=== PATIENT | female | born 1980 | race Caucasian/White ===

== ENCOUNTER 2018-03-09 21:25 | Inpatient (IN) | payer MEDICAID ==
[~2018-03-09] VITALS: Ht 152.4 cm; Wt 78.0 kg
[2018-03-09 21:33] VITALS: BP 181/127
--- NOTE | 2018-03-09 21:33 | NUR ---
PT TAKEN TO BED 10
--- NOTE | 2018-03-09 21:35 | NUR ---
37YO F PATIENT PRESENTS TO ED WITH WITH CP X1DAY AND SWELLING TO BILAT LEGS . PT STATES PAIN HAS BEEN ON AND OFF FOR X1WEEK WITH NO AGRIVATING FACTORS, WITH NAUEA, AND SOB . DENIES V/D TODAY W/ VOMITING EPISODES EARILIER IN THE WEEK; SKIN IS PINK/WARM/DRY WITH MOTTLING OF BILAT LEGS; AAOX4 WITH EVEN AND STEADY GAIT; LUNGS CLEAR BL; HR EVEN AND REGULAR; PT DENIES ANY FEVER OR COUGH AT THIS TIME; PATIENT STATES PAIN OF 5/10 AT THIS TIME; VSS; PATIENT POSITIONED FOR COMFORT; HOB ELEVATED; BEDRAILS UP X2; BED DOWN. ER MD MADE AWARE OF PT STATUS.
--- NOTE | 2018-03-09 21:38 | NUR ---
Dr. Chase evaluating patient.
--- NOTE | 2018-03-09 22:05 | NUR ---
PT REAST IN IN NO APPERENT DISTRESS TALKING WITH FRIEND AT BEDSIDE
[2018-03-09 22:16] LABS: BASOPHILS # (AUTO) 0.1 K/uL (0.00-0.22); BASOPHILS % (AUTO) 0.7 % (0.0-2.0); EOSINOPHILS % (AUTO) 0.7 % (0.0-4.0); HEMATOCRIT 51.9 % (36-48); HEMOGLOBIN 17.1 g/dL (12.0-16.0); LYMPHOCYTES # (AUTO) 2.9 K/uL (2.5-16.5); LYMPHOCYTES % (AUTO) 37.7 % (20.5-51.1); MEAN CORPUSCULAR HEMOGLOBIN 32 pg (27-31); MEAN CORPUSCULAR HGB CONC 33 g/dL (33-37); MEAN CORPUSCULAR VOLUME 95.8 fL (80-94); MONOCYTES # (AUTO) 0.5 K/uL (0.8-1.0); MONOCYTES % (AUTO) 7.2 % (1.7-9.3); NEUTROPHILS # (AUTO) 4.1 K/uL (1.8-7.7); NEUTROPHILS % (AUTO) 53.7 % (42.2-75.2); PLATELET COUNT (AUTO) 127 K/uL (140-450); RED BLOOD CELL COUNT(AUTO) 5.42 MIL/uL (4.20-5.40); RED CELL DISTRIBUTION WIDTH 14.1 % (11.6-13.7); WHITE BLOOD COUNT (AUTO) 7.6 K/uL (4.8-10.8)
[2018-03-09 22:33] LABS: ANION GAP 11.9 (8-16); CARBON DIOXIDE 28.3 mmol/L (21-32); CREATININE 1.2 mg/dL (0.6-1.3); POTASSIUM 4.2 mmol/L (3.5-5.1)
[2018-03-09 22:39] LABS: ALBUMIN 2.6 g/dL (3.4-5.0); TOTAL BILIRUBIN 0.5 mg/dL (0.0-1.0)
[2018-03-09 22:41] LABS: PROTHROMBIN TIME 13.1 secs (10.8-13.4)
[2018-03-09] MEDS ORDERED: ASPIRIN 81 MG TAB.CHEW PO ONE (22:50)
[2018-03-09] MEDS ORDERED: NACL 0.9% 1,000 ML IV ONE (22:50)
[2018-03-09] MEDS ORDERED: ONDANSETRON 4 MG/2 ML VIAL IVP PRN (23:25)
[2018-03-09] MEDS ORDERED: ACETAMINOPHEN 325 MG TAB PO PRN (23:25)
[2018-03-09] MEDS ORDERED: HYDROcodone/APAP 7.5/325 MG 1 TAB PO PRN (23:25)
[2018-03-09 23:43] LABS: BARBITURATE, URINE NEG. ng/ml (NEG <=200); BENZODIAZEPINE, URINE NEG. ng/mL (NEG <=200); CANNABINOID, URINE POS. ng/mL (NEG <=50); COCAINE, URINE NEG. ng/mL (NEG <=300); OPIATE, URINE NEG. ng/mL (NEG <=2000); PHENCYCLIDINE SCREEN,URINE NEG. ng/mL (NEG <=25)
--- NOTE | 2018-03-09 23:48 | NUR ---
Patient will be admitted to care of DR BURROWS . Admited to TELE. Will go to room 123B. Belongings list completed. Report to NAY BIRD.
[2018-03-09 23:52] LABS: FREE T4 (FREE THYROXINE) 0.93 ng/dL (0.76-1.46); MAGNESIUM 1.4 mg/dL (1.8-2.4); PHOSPHORUS 5.5 mg/dL (2.5-4.9); THYROID STIMULATING HORMONE 6.86 uIU/mL (0.34-3.74)
[2018-03-10] VITALS: BP 164/134
--- NOTE | 2018-03-10 | NUR ---
RECEIVED REPORT FROM ER NURSE ROOSEVELT. PT IN STABLE CONDITION. NO S/S OF DISTRESS NOTED. PT CAME TO ER WITH C/C: CHEST PAIN BUT DOES NOT CURRENTLY HAVE CHEST PAIN. PT IS ON RA. IV TO R AC 20G PATENT AND INTACT. SKIN IS WARM AND DRY TO TOUCH, COLOR WNL. RR EVEN/UNLABORED. INITIAL ASSESSMENT COMPLETED. PLAN OF CARE DISCUSSED WITH PT, VERBALIZED UNDERSTANDING. ALL SAFETY PRECAUTIONS MET, CALL LIGHT WITHIN REACH, WILL CONTINUE TO MONITOR
--- NOTE | 2018-03-10 00:10 | NUR ---
DR. TANNER IN TO SEE PT AND DISCUSS PLAN OF CARE
[2018-03-10 00:13] LABS: APPEARANCE,URINE CLEAR (CLEAR); BILIRUBIN,URINE NEGATIVE (NEGATIVE); BLOOD, URINE 2+ (NEGATIVE); COLOR,URINE YELLOW (YELLOW); LEUKOCYTE ESTERASE ,URINE NEGATIVE (NEGATIVE); NITRITE, URINE NEGATIVE (NEGATIVE); UGLUCOSE NEGATIVE (NEGATIVE)
[2018-03-10] MEDS ORDERED: FUROSEMIDE 20 MG/2 ML VIAL IVP SCH ×2 (00:30→08:30)
--- NOTE | 2018-03-10 00:47 | NUR ---
DR. TANNER ORDERED CT W/ CONTRAST STAT FOR PT. CONSENT OBTAINED. SPOKE WITH KRISTIN IN RAD AND STATED PT IS READY TO GO
[2018-03-10] MEDS ORDERED: MAG SULF 2000 MG/WATER PREMIX 50 ML IV SCH (01:15)
--- NOTE | 2018-03-10 01:30 | NUR ---
CARMEN IN RAD CALLED TO REMIND HER OF STAT CT. STATED SHE DID NOT KNOW PT WAS READY, AND SHE WILL COME
[2018-03-10 01:45] LABS: RBC,URINE 3-10 (FEW) /HPF (0-5); URINE AMORPHOUS URATE 2+ /HPF (None Seen); WBC,URINE 6-15 (FEW) /HPF (0-5)
--- NOTE | 2018-03-10 02:30 | NUR ---
PT TAKEN TO CT IN STABLE CONDITION. NO S/S OF DISTRESS NOTED
--- NOTE | 2018-03-10 03:00 | NUR ---
PT BACK FROM CT IN STABLE CONDITION, PT PROVIDED WITH SANDWICH AND PUT ON 2L O2 VIA NC PER DR. NG'S ORDERS. PT FEELS SOB AND O2 SAT 90%
--- NOTE | 2018-03-10 04:30 | NUR ---
DR. NG AWARE OF PTS B/P 147/110 PULSE 77. STATED IT IS OKAY BECAUSE IT IS COMING DOWN, NO NEW ORDERS
[2018-03-10 06:06] VITALS: BP 147/110
[2018-03-10 06:17] LABS: EOSINOPHILS # (AUTO) 0.1 K/uL (0-0.4); HEMATOCRIT 52.9 % (36-48); LYMPHOCYTES # (AUTO) 2.5 K/uL (2.5-16.5); MEAN CORPUSCULAR VOLUME 94.8 fL (80-94); MONOCYTES # (AUTO) 0.6 K/uL (0.8-1.0)
[2018-03-10 06:33] LABS: BASOPHILS % (AUTO) 0.4 % (0.0-2.0); EOSINOPHILS % (AUTO) 0.9 % (0.0-4.0); HEMOGLOBIN 17.7 g/dL (12.0-16.0); LYMPHOCYTES % (AUTO) 26.7 % (20.5-51.1); MEAN CORPUSCULAR HEMOGLOBIN 32 pg (27-31); MEAN CORPUSCULAR HGB CONC 33 g/dL (33-37); MONOCYTES % (AUTO) 6.9 % (1.7-9.3); NEUTROPHILS % (AUTO) 65.1 % (42.2-75.2); PLATELET COUNT (AUTO) 127 K/uL (140-450); RED BLOOD CELL COUNT(AUTO) 5.59 MIL/uL (4.20-5.40); WHITE BLOOD COUNT (AUTO) 9.2 K/uL (4.8-10.8)
[2018-03-10 06:39] LABS: ANION GAP 13.9 (8-16); CARBON DIOXIDE 23.8 mmol/L (21-32); POTASSIUM 3.7 mmol/L (3.5-5.1)
[2018-03-10 06:44] LABS: MAGNESIUM 1.9 mg/dL (1.8-2.4); PHOSPHORUS 4.8 mg/dL (2.5-4.9)
--- NOTE | 2018-03-10 07:20 | NUR ---
ASSUMED CONTINUITY OF CARE. NO SIGNS AND SYMPTOMS OF ACUTE DISTRESS NOTED. INITIAL ASSESSMENT DONE. KEEP COMFORTABLE ON BED. EXPLAINED DIAGNOSIS, PLAN OF CARE, PAIN MANAGEMENT TEACHING, USE OF CALL LIGHT/BED/TV/BATHROOM. VERBALIZED UNDERSTANDING. CALL LIGHT WITHIN REACH.
--- NOTE | 2018-03-10 07:30 | NUR ---
REPORT GIVEN TO DAY NURSE, PT IN STABLE CONDITION. NO S/S OF DISTRESS NOTED.
[2018-03-10 08:00] VITALS: BP 128/106
--- NOTE | 2018-03-10 08:00 | NUR ---
Patient's Plan of Care was discussed and reviewed with DELICATESSEN SLICER: MAGUI WARE
[2018-03-10] MEDS: ATORVASTATIN 20 MG TAB PO SCH (08:47)
[2018-03-10] MEDS: DOCUSATE SODIUM 100 MG GELCAP PO SCH ×2 (08:47→20:20)
[2018-03-10] MEDS: METOPROLOL 25 MG TAB PO SCH ×2 (08:48→20:20)
[2018-03-10] MEDS: ECOTRIN 81 MG TABEC PO SCH (08:48)
[2018-03-10] MEDS ORDERED: METOPROLOL 25 MG TAB PO SCH ×2 (09:00)
[2018-03-10] MEDS ORDERED: LISINOPRIL 5 MG TAB PO SCH ×2 (09:00)
--- NOTE | 2018-03-10 09:08 | NUR ---
PATIENT HAS BEEN SCREENED AND CATEGORIZED HIGH NUTRITION RISK. PATIENT WILL BE SEEN WITHIN 1-2 DAYS OF ADMISSION. 03/10/18 - 03/11/[address]
[2018-03-10] MEDS ORDERED: LISINOPRIL 20 MG TAB PO SCH (11:05)
[2018-03-10] MEDS ORDERED: CARVEDILOL 3.125 MG TAB PO SCH (11:30)
--- NOTE | 2018-03-10 11:30 | NUR ---
FAXED INITIAL REVIEW TO [facility] [phone] PHONE YONG [phone]
[2018-03-10 12:00] VITALS: BP 139/102
--- NOTE | 2018-03-10 13:25 | NUR ---
PHYSICAL THERAPIST CAME FOR PT. EVAL AND TREATMENT.
--- NOTE | 2018-03-10 14:55 | NUR ---
03/10/18 RD INITIAL ASSESSMENT COMPLETED PLEASE REFER TO NUTRITION ASSESSMENT UNDER CARE ACTIVITY FOR ESTIMATED NUTRITIONAL NEEDS. 1. CONTINUE CARDIAC DIET TOLERATED - PT MEETING 100% OF ESTIMATED KCAL AND PROTEIN NEEDS 2. PROVIDED PT WITH LOW FAT DIET EDUCATION 3. RD TO FOLLOW-UP 5-7 DAYS, LOW RISK CIERA LOPEZ, KIRBY
--- NOTE | 2018-03-10 15:45 | NUR ---
P.T. NOTES P.T. DIETER COMPLETED; NURSING TO AMBULATE PATIENT AD HUSAM, O2 SAT ROOM AIR=92% (W/ GAIT), 96% (REST). Addendum: 03/10/18 at 1546 by Bella Vo PT Amended: Links added.
--- NOTE | 2018-03-10 15:55 | NUR ---
Hoopla CAME FOR PT. US ABD. INFORMED DR. VELASCO AND CHARGE NURSE NORA AMBRIZ THAT PT. US ABD IS JUST ABOUT TO START AT THIS TIME.
[2018-03-10 16:00] VITALS: BP 131/96
--- NOTE | 2018-03-10 19:18 | NUR ---
REPORT GIVEN TO CASTILLO AMBRIZ. IN STABLE CONDITION.
--- NOTE | 2018-03-10 19:19 | NUR ---
RECEIVED REPORT FROM MAGUI ADAMES LVN PT IN STABLE CONDITION. NO S/S OF DISTRESS NOTED. PT IS ON RA. IV TO R AC 20G PATENT AND INTACT. SKIN IS WARM AND DRY TO TOUCH, COLOR WNL. RR EVEN/UNLABORED. INITIAL ASSESSMENT COMPLETED. PLAN OF CARE DISCUSSED WITH PT, VERBALIZED UNDERSTANDING. ALL SAFETY PRECAUTIONS MET, CALL LIGHT WITHIN REACH, WILL CONTINUE TO MONITOR
[2018-03-10 20:00] VITALS: BP 126/94
[2018-03-10] MEDS: FUROSEMIDE 100 MG/10 ML VIAL IVP SCH (20:20)
--- NOTE | 2018-03-10 21:30 | NUR ---
PT RESTING COMFORTABLY IN BED. NO S/S OF DISTRESS NOTED. VSS, WILL CONTINUE TO MONITOR
[2018-03-11] VITALS: BP 128/93
--- NOTE | 2018-03-11 | NUR ---
PT RESTING COMFORTABLY IN BED. NO S/S OF DISTRESS NOTED. VSS, WILL CONTINUE TO MONITOR
--- NOTE | 2018-03-11 03:30 | NUR ---
PT RESTING COMFORTABLY IN BED. NO S/S OF DISTRESS NOTED. VSS, WILL CONTINUE TO MONITOR
[2018-03-11 04:00] VITALS: BP 132/96
[2018-03-11 06:30] LABS: BASOPHILS # (AUTO) 0.1 K/uL (0.00-0.22); BASOPHILS % (AUTO) 0.6 % (0.0-2.0); EOSINOPHILS # (AUTO) 0.1 K/uL (0-0.4); EOSINOPHILS % (AUTO) 1.1 % (0.0-4.0); HEMATOCRIT 55.4 % (36-48); HEMOGLOBIN 18.4 g/dL (12.0-16.0); LYMPHOCYTES # (AUTO) 3.1 K/uL (2.5-16.5); LYMPHOCYTES % (AUTO) 35.6 % (20.5-51.1); MEAN CORPUSCULAR HEMOGLOBIN 32 pg (27-31); MEAN CORPUSCULAR HGB CONC 33 g/dL (33-37); MEAN CORPUSCULAR VOLUME 96.4 fL (80-94); MONOCYTES # (AUTO) 0.7 K/uL (0.8-1.0); MONOCYTES % (AUTO) 8.3 % (1.7-9.3); NEUTROPHILS # (AUTO) 4.8 K/uL (1.8-7.7); NEUTROPHILS % (AUTO) 54.4 % (42.2-75.2); PLATELET COUNT (AUTO) 123 K/uL (140-450); RED BLOOD CELL COUNT(AUTO) 5.75 MIL/uL (4.20-5.40); RED CELL DISTRIBUTION WIDTH 14.5 % (11.6-13.7); WHITE BLOOD COUNT (AUTO) 8.8 K/uL (4.8-10.8)
--- NOTE | 2018-03-11 07:22 | NUR ---
REPORT GIVEN TO DAY NURSE FOR CONTINUITY OF CARE, PT IN STABLE CONDITION.
--- NOTE | 2018-03-11 07:22 | NUR ---
ASSUMED CONTINUITY OF CARE. NO SIGNS AND SYMPTOMS OF ACUTE DISTRESS NOTED. INITIAL ASSESSMENT DONE. EXPLAINED DIAGNOSIS, PLAN OF CARE, PAIN MANAGEMENT TEACHING, USE OF CALL LIGHT/BED/TV/BATHROOM. VERBALIZED UNDERSTANDING. CALL LIGHT WITHIN REACH.
[2018-03-11 07:42] LABS: ANION GAP 16.8 (8-16); CARBON DIOXIDE 22.8 mmol/L (21-32); CREATININE 1.2 mg/dL (0.6-1.3); POTASSIUM 4.6 mmol/L (3.5-5.1)
[2018-03-11 08:00] VITALS: BP 139/103
--- NOTE | 2018-03-11 08:00 | NUR ---
Patient's Plan of Care was discussed and reviewed with KEYSEATER OPERATOR: MAGUI DOMINGO. ELIZ
[2018-03-11] MEDS: ATORVASTATIN 20 MG TAB PO SCH (08:39)
[2018-03-11] MEDS: CARVEDILOL 3.125 MG TAB PO SCH (08:40)
[2018-03-11] MEDS: LISINOPRIL 20 MG TAB PO SCH (08:40)
[2018-03-11] MEDS: METOPROLOL 25 MG TAB PO SCH (08:40)
[2018-03-11] MEDS: ECOTRIN 81 MG TABEC PO SCH (08:41)
[2018-03-11] MEDS: DOCUSATE SODIUM 100 MG GELCAP PO SCH ×2 (08:41→21:10)
[2018-03-11] MEDS: FUROSEMIDE 100 MG/10 ML VIAL IVP SCH (08:48)
[2018-03-11 12:00] VITALS: BP 139/100
[2018-03-11 12:27] LABS: FOLIC ACID 16.7 ng/mL (>3.0)
[2018-03-11] MEDS ORDERED: ATOR20TA40 PO (13:51)
[2018-03-11] MEDS ORDERED: NIFE30TE5 PO (13:51)
[2018-03-11] MEDS ORDERED: LISI-420 PO (13:51)
[2018-03-11] MEDS ORDERED: CARV3.122 PO (13:51)
[2018-03-11] MEDS ORDERED: FURO-572 PO (13:51)
[2018-03-11] MEDS: NIFEdipine 30 MG TABER PO SCH ×2 (14:15→14:27)
--- NOTE | 2018-03-11 14:19 | NUR ---
DR. RODRIGUEZ WENT INSIDE PT. ROOM AND SPOKE TO PT. AT BEDSIDE.
--- NOTE | 2018-03-11 14:30 | NUR ---
DR. VELASCO ORDERED NOT TO GIVE ADALAT 30 MG PO.
[2018-03-11] MEDS ORDERED: AMLO2.5T PO (14:41)
[2018-03-11] MEDS ORDERED: NIFEdipine 30 MG TABER PO SCH (15:00)
[2018-03-11] MEDS ORDERED: amLODIPine 5 MG TAB PO SCH (15:00)
[2018-03-11 16:00] VITALS: BP 133/106
--- NOTE | 2018-03-11 19:20 | NUR ---
BEDSIDE REPORT GIVEN TO TAYLOR AMBRIZ. IN STABLE CONDITION.
--- NOTE | 2018-03-11 19:25 | NUR ---
RECEIVED FROM AM NURSE IN BED AWAKE SITTING UP AND TALKING WITH A VISITOR. CARE PLANS FOR THE NIGHT DISCUSSED WITH HER AND CALL LIGHT AT BEDSIDE. INDEPENDENT AND ORIENTED X 4. ROM X 4. IVF SITE RAC#20 INTACT AND WITH GOOD BLOOD RETURN.
[2018-03-11 20:00] VITALS: BP 130/101
[2018-03-11] MEDS: FUROSEMIDE 20 MG/2 ML VIAL IVP SCH (21:10)
--- NOTE | 2018-03-11 21:29 | NUR ---
PT. STILL AWAKE AND PROVIDED WITH DISPOSABLE UNDERWEAR REQUESTED. ABLE TO VERBALIZE NEEDS WELL. EXPLAINED MEDICATIONS GIVEN TO HER. NO COMPLAINTS DONE. TELEMETRY MONITORING. ENCOURAGED TO CALL IF SHE NEEDS HELP AND IF SHE HAS ANY PAIN.
--- NOTE | 2018-03-11 23:29 | NUR ---
CHECKED ON PT. SLEEPING . VITAL SIGNS TAKEN AND PT. WOKE UP EASILY. NO FURTHER COMPLAINTS DONE. TELEMETRY MONITORING. CALL LIGHT AT BEDSIDE.
[2018-03-12] VITALS: BP 135/103
--- NOTE | 2018-03-12 02:30 | NUR ---
SLEEPING WELL. NO RESTLESSNESS. CALL LIGHT WITH IN REACH AT ALL TIMES.
[2018-03-12 04:58] VITALS: BP 129/98
--- NOTE | 2018-03-12 05:33 | NUR ---
SLEPT WELL THIS SHIFT. INDEPENDENT . ROM X 4. GOES BRP BY HERSELF. NO PAIN COMPLAINTS DONE THIS SHIFT. TELEMETRY MONITORING.
--- NOTE | 2018-03-12 07:30 | NUR ---
RECIEVED PT FROM PM NURSE, PT SLEEPING BUT EASILY AWAKING WITH INITIAL ASSESSMENT. LUNG SOUND CLEAR, IV TO RIGHT AC # 20, SITE INTACT AND PATENT. ABDOMEN SOFT WITH ACTIVE BOWEL SOUNDS, PT ABLE TO MOVE ALL HER EXTREMITIES. POC EXPLAINED TO PT, PT VERBALIZED UNDERSTANDING, CALL LIGHT IN REACH, WILL CONTINUE TO MONITOR.
[2018-03-12 08:00] VITALS: BP 142/108
[2018-03-12] MEDS: DOCUSATE SODIUM 100 MG GELCAP PO SCH (08:21)
[2018-03-12] MEDS: LISINOPRIL 20 MG TAB PO SCH (08:21)
[2018-03-12] MEDS: CARVEDILOL 3.125 MG TAB PO SCH (08:22)
[2018-03-12] MEDS: ATORVASTATIN 20 MG TAB PO SCH (08:22)
[2018-03-12] MEDS: ECOTRIN 81 MG TABEC PO SCH (08:22)
[2018-03-12] MEDS: FUROSEMIDE 20 MG/2 ML VIAL IVP SCH (08:23)
[2018-03-12] MEDS ORDERED: NIFEdipine 30 MG TABER PO SCH ×2 (09:00)
[2018-03-12] MEDS ORDERED: amLODIPine 5 MG TAB PO SCH (09:00)
--- NOTE | 2018-03-12 09:00 | NUR ---
DUE MEDS GIVEN, PT TOLERATED WELL.
--- NOTE | 2018-03-12 09:50 | NUR ---
PT WALED TO BATHROOM WITHOUT DIFFICULTY.
[2018-03-12 10:27] VITALS: BP_SYST 131; BP_SYST 140; BP_DIAS 90; BP_DIAS 98
[2018-03-12 10:45] VITALS: BP 131/90
--- NOTE | 2018-03-12 10:45 | NUR ---
PT AWAKE, ALERT, AND ORIENTED. ON ROOM AIR, NO S/S OF RESPIRATORY DISTRESS NOTED. O2 SAT 97%. DISCHARGE PAPER SIGNED, DESCRIPTION GIVEN, ADVISED TO FOLLOW UP WITH PCP OR ATTENDING, PT VERBALIZED UNDERSTANDING. PT DENIES ANY PAIN OR DISCOMFORT AT THIS TIME. VITALS STABLE, BP 131/90, HR 93. IV REMOVED. ALL PERSONAL BELONGINGS WITH PT. WAITING FOR RIDER TO PICK HER UP.
--- NOTE | 2018-03-12 11:50 | NUR ---
PT WALKED OUT OF UNIT WITH HER GIRLFRIEND WITH STEADY GAIT. AOX4, NO RESPIRATORY DISTRESS.
--- NOTE | 2018-03-12 13:01 | NUR ---
*LATE ENTRY FOR 03/11/18 CM NOTE FAXED CONCURRENT REVIEW TO [facility] [phone] PHONE OYNG [phone] AND TO [facility] [phone] # [phone]
--- NOTE | 2018-03-12 13:07 | NUR ---
FAXED CONCURRENT REVIEW TO [facility] [phone] PHONE [phone] FAXED CONCURRENT REVIEW TO [facility] [phone] PHONE YONG [phone]
== END 2018-03-12 11:00 | disposition home or self-care (01) | DRG 812 ==
LOC: MED 21:25 → MTU 23:20
PROVIDERS: ADMIT Family Medicine Sports Medicine; ATTEND Family Medicine Sports Medicine
DX: T43.621A Poisoning by amphetamines, accidental (unintentional), initial encounter (principal); J96.01 Acute respiratory failure with hypoxia; N17.0 Acute kidney failure with tubular necrosis; I50.43 Acute on chronic combined systolic (congestive) and diastolic (congestive) heart failure; E43 Unspecified severe protein-calorie malnutrition; D69.6 Thrombocytopenia, unspecified; I27.20 Pulmonary hypertension, unspecified; F41.9 Anxiety disorder, unspecified; E83.42 Hypomagnesemia; E83.39 Other disorders of phosphorus metabolism; D75.1 Secondary polycythemia; E02 Subclinical iodine-deficiency hypothyroidism; F17.200 Nicotine dependence, unspecified, uncomplicated; E78.2 Mixed hyperlipidemia; F19.10 Other psychoactive substance abuse, uncomplicated; I11.0 Hypertensive heart disease with heart failure; F12.10 Cannabis abuse, uncomplicated; F15.10 Other stimulant abuse, uncomplicated; E66.9 Obesity, unspecified; Z82.49 Family history of ischemic heart disease and other diseases of the circulatory system; Z68.33 Body mass index [BMI] 33.0-33.9, adult; Z98.51 Tubal ligation status; Y92.89 Other specified places as the place of occurrence of the external cause
CPT/HCPCS: 36415; 71045; 71275; 76705; 80048; 80053; 80305; 81001; 82150; 82607; 82668; 82728; 82746; 83036; 83540; 83690; 83735; 83880; 84100; 84439; 84443; 84484; 85025; 85045; 85610; 85730; 87081; 87086; 93005; 93976; 96360; 99285; J0696; J1940; J2405; J3475; J7060; Q0092; Q9967

== ENCOUNTER 2018-11-10 23:36 | Emergency (ER) | payer MEDICAID, OTHER ==
[~2018-11-10] VITALS: Ht 154.9 cm; Wt 72.6 kg
[~2018-11-10 23:36] MED LIST: AMLO2.5T PO; ATOR20TA40 PO; CARV3.122 PO; FURO-572 PO; LISI-420 PO
[2018-11-10 23:38] VITALS: BP 157/112
[2018-11-11] MEDS ORDERED: FUROSEMIDE 20 MG/2 ML VIAL IVP ONE (03:10)
[2018-11-11] MEDS ORDERED: NITROGLYCERIN 0.4 MG TAB SL ONE (03:10)
[2018-11-11] MEDS ORDERED: MORPHINE SULFATE 4 MG/ML SYR IVP ONE (03:10)
[2018-11-11 04:04] LABS: ANION GAP 15.1 (8-16); CARBON DIOXIDE 20.9 mmol/L (21-32); CREATININE 0.9 mg/dL (0.6-1.3)
[2018-11-11 04:09] LABS: ALBUMIN 3.3 g/dL (3.4-5.0); TOTAL BILIRUBIN 1.2 mg/dL (0.0-1.0)
[2018-11-11 04:14] LABS: BASOPHILS % (AUTO) 0.7 % (0.0-2.0); CREATINE KINASE MB 3.7 ng/mL (0-3.6); EOSINOPHILS # (AUTO) 0.1 K/uL (0-0.4); EOSINOPHILS % (AUTO) 1.3 % (0.0-4.0); HEMATOCRIT 46.2 % (36-48); HEMOGLOBIN 15.1 g/dL (12.0-16.0); LYMPHOCYTES # (AUTO) 2.2 K/uL (2.5-16.5); LYMPHOCYTES % (AUTO) 32.5 % (20.5-51.1); MEAN CORPUSCULAR HEMOGLOBIN 31 pg (27-31); MEAN CORPUSCULAR HGB CONC 33 g/dL (33-37); MEAN CORPUSCULAR VOLUME 95.1 fL (80-94); MONOCYTES # (AUTO) 0.6 K/uL (0.8-1.0); MONOCYTES % (AUTO) 9.3 % (1.7-9.3); NEUTROPHILS # (AUTO) 3.8 K/uL (1.8-7.7); NEUTROPHILS % (AUTO) 56.2 % (42.2-75.2); PLATELET COUNT (AUTO) 171 K/uL (140-450); RED BLOOD CELL COUNT(AUTO) 4.85 MIL/uL (4.20-5.40); RED CELL DISTRIBUTION WIDTH 15.2 % (11.6-13.7); WHITE BLOOD COUNT (AUTO) 6.7 K/uL (4.8-10.8)
[2018-11-11 05:20] VITALS: BP 160/100
== END 2018-11-11 05:26 | disposition home or self-care (01) ==
LOC: MED 23:36
DX: I27.20 Pulmonary hypertension, unspecified (principal); I11.0 Hypertensive heart disease with heart failure; I50.9 Heart failure, unspecified; E78.5 Hyperlipidemia, unspecified; Z79.899 Other long term (current) drug therapy
CPT/HCPCS: 36415; 71045; 80053; 81002; 81025; 82550; 82553; 83880; 84484; 85025; 93005; 96374; 96375; 99284; J1940; J2270; Q0092

== ENCOUNTER 2019-05-15 15:48 | Inpatient (IN) | payer MEDICAID, OTHER ==
[~2019-05-15] VITALS: Ht 154.9 cm; Wt 79.4 kg
[2019-05-15 15:54] VITALS: BP 179/143
--- NOTE | 2019-05-15 16:00 | NUR ---
EKG DONE IN TRIAGE. URINE CUP GIVEN TO PT. PT RETURNED TO LOBBY IN STABLE CONDITION.
--- NOTE | 2019-05-15 16:12 | NUR ---
38 Y FEMALE BIB SELF C/O CHEST PAIN SINCE NOON, DESCRIBED AT [place] FROM CHEST TO LEFT SHOULDER, PAIN 9/10. AT REST. C/O DIZZINESS WHEN PAIN FIRST STARTED. DENIES N/V/D, SOB, OR BLURRY VISION. VSS AT THIS TIME. PT AA0X4. FULL AND COMPLETE SENTENCES. BED IS DOWN, LOCKED, BED RAIL X 1,ERMD TO SEE PT. MED HX: PULMONARY HTN/CHF
--- NOTE | 2019-05-15 16:13 | NUR ---
DR BENZ AT BEDSIDE
[2019-05-15 16:55] LABS: BASOPHILS # (AUTO) 0.1 K/uL (0.00-0.22); BASOPHILS % (AUTO) 1.3 % (0.0-2.0); EOSINOPHILS % (AUTO) 0.5 % (0.0-4.0); HEMATOCRIT 49.2 % (36-48); HEMOGLOBIN 16.3 g/dL (12.0-16.0); LYMPHOCYTES # (AUTO) 1.8 K/uL (2.5-16.5); LYMPHOCYTES % (AUTO) 28.3 % (20.5-51.1); MEAN CORPUSCULAR HEMOGLOBIN 31 pg (27-31); MEAN CORPUSCULAR HGB CONC 33 g/dL (33-37); MEAN CORPUSCULAR VOLUME 94.1 fL (80-94); MONOCYTES # (AUTO) 0.6 K/uL (0.8-1.0); NEUTROPHILS # (AUTO) 3.9 K/uL (1.8-7.7); NEUTROPHILS % (AUTO) 60.9 % (42.2-75.2); PLATELET COUNT (AUTO) 137 K/uL (140-450); RED BLOOD CELL COUNT(AUTO) 5.23 MIL/uL (4.20-5.40); RED CELL DISTRIBUTION WIDTH 14.6 % (11.6-13.7); WHITE BLOOD COUNT (AUTO) 6.5 K/uL (4.8-10.8)
--- NOTE | 2019-05-15 16:57 | NUR ---
PTS URINE WALKED DIRECTLY TO LAB
[2019-05-15 17:08] LABS: PROTHROMBIN TIME 12.1 secs (10.8-13.4)
[2019-05-15 17:09] LABS: APPEARANCE,URINE CLEAR (CLEAR); BILIRUBIN,URINE NEGATIVE (NEGATIVE); BLOOD, URINE 1+ (NEGATIVE); COLOR,URINE YELLOW (YELLOW); LEUKOCYTE ESTERASE ,URINE NEGATIVE (NEGATIVE); NITRITE, URINE NEGATIVE (NEGATIVE); UGLUCOSE NEGATIVE (NEGATIVE)
[2019-05-15 17:13] LABS: MAGNESIUM 1.5 mg/dL (1.8-2.4)
[2019-05-15 17:15] LABS: ANION GAP 12.7 (8-16); CARBON DIOXIDE 25.5 mmol/L (21-32); POTASSIUM 4.2 mmol/L (3.5-5.1)
[2019-05-15 17:18] LABS: RBC,URINE 0-5 /HPF (0-5); WBC,URINE 0-5 /HPF (0-5)
[2019-05-15 17:21] LABS: ALBUMIN 2.5 g/dL (3.4-5.0); TOTAL BILIRUBIN 0.7 mg/dL (0.0-1.0)
[2019-05-15 17:23] LABS: BARBITURATE, URINE NEG. ng/ml (NEG <=200); BENZODIAZEPINE, URINE NEG. ng/mL (NEG <=200); CANNABINOID, URINE POS. ng/mL (NEG <=50); COCAINE, URINE NEG. ng/mL (NEG <=300); OPIATE, URINE NEG. ng/mL (NEG <=2000); PHENCYCLIDINE SCREEN,URINE NEG. ng/mL (NEG <=25)
--- NOTE | 2019-05-15 17:32 | NUR ---
158/123 PTS BP. AA0X4. PT ON PHONE SITTING UPRIGHT IN BED. WILL CONTINUE TO MONITOR.
--- NOTE | 2019-05-15 18:33 | NUR ---
CARDIAC DIET ORDERED FOR PT
[2019-05-15] MEDS ORDERED: NACL 0.9% 1,000 ML IV SCH (18:39)
[2019-05-15] MEDS ORDERED: SILD20TA PO (18:39)
[2019-05-15] MEDS ORDERED: HYDROcodone/APAP 5/325 MG 1 TAB TAB PO PRN ×2 (18:40→19:00)
[2019-05-15] MEDS ORDERED: ZOLPIDEM 5 MG TAB PO PRN ×2 (18:40→19:00)
[2019-05-15] MEDS ORDERED: ACETAMINOPHEN 325 MG TAB PO PRN ×2 (18:40→19:00)
[2019-05-15] MEDS ORDERED: DOCUSATE SODIUM 100 MG GELCAP PO PRN ×2 (18:40→19:00)
[2019-05-15] MEDS ORDERED: ONDANSETRON 4 MG/2 ML VIAL IM/IVP PRN ×2 (18:40→19:00)
[2019-05-15] MEDS ORDERED: MORPHINE SULFATE 2 MG/ML SYR IVP PRN ×2 (18:40→19:00)
[2019-05-15] MEDS ORDERED: LORazepam 2 MG/ML VIAL IM/IVP PRN ×2 (18:40→19:00)
--- NOTE | 2019-05-15 18:51 | NUR ---
Pt transferred to Tele via BED WITH PELON ANGEL.
--- NOTE | 2019-05-15 18:55 | NUR ---
Patient will be admitted to care of DR SEGURA. Admited to TELE. Will go to room 106A. Belongings list completed. Report to ISRAEL BIRD.
--- NOTE | 2019-05-15 19:05 | NUR ---
Received endorsement from AM shift charge nurse; patient A/Ox4, able to make needs known, Ukrainian speaking, ambulatory. Patient able to ambulate from gurney to bed without assistance. Introduced self, updated board, oriented patient to room and hospital environment. No SOB or distress noted, on room air. IV site on left hand, 22 gauge, saline locked. Skin intact. Chief complaint of atypical chest pain, DX is chest pain. Bed in the lowest position, call light within reach. Initial assessment done. Will continue to monitor.
[2019-05-15 19:50] LABS: PHOSPHORUS 4.3 mg/dL (2.5-4.9); THYROID STIMULATING HORMONE 3.79 uIU/mL (0.34-3.74)
[2019-05-15] MEDS: NACL 0.9% 1,000 ML IV SCH (19:51)
[2019-05-15 20:00] VITALS: BP 151/123
[2019-05-15] MEDS ORDERED: FUROSEMIDE 20 MG TAB PO SCH (20:00)
[2019-05-15] MEDS ORDERED: SILDENAFIL 20 MG TAB PO SCH (20:00)
--- NOTE | 2019-05-15 20:55 | NUR ---
Vitals taken, noticed elevated BP 153/93; Dr. Willams made aware; new orders made and carried out.
[2019-05-15] MEDS ORDERED: ATORVASTATIN 20 MG TAB PO SCH (21:00)
--- NOTE | 2019-05-15 21:35 | NUR ---
Due meds given, tolerated well.
[2019-05-15] MEDS ORDERED: ATOR20TA40 PO (21:38)
[2019-05-15] MEDS ORDERED: MAGNESIUM OXIDE 400 MG TAB PO ONE (21:50)
[2019-05-15] MEDS ORDERED: MAGNESIUM OXIDE 400 MG TAB ONE (22:04)
--- NOTE | 2019-05-15 23:45 | NUR ---
Vitals taken, patient had elevated BP of 151/106; Dr. Willams made aware. Awaiting orders.
[2019-05-16] VITALS: BP 151/106
[2019-05-16] MEDS ORDERED: CARVEDILOL 3.125 MG TAB PO SCH (00:05)
--- NOTE | 2019-05-16 01:37 | NUR ---
Rounds made; vitals taken, BP 142/95.
--- NOTE | 2019-05-16 03:40 | NUR ---
Vitals taken, no distress noted. Patient asleep, visible chest rise and fall noted.
[2019-05-16 04:00] VITALS: BP 141/93
--- NOTE | 2019-05-16 05:26 | NUR ---
Patient awake; eating gage crackers. No distress noted.
[2019-05-16 06:40] LABS: BASOPHILS # (AUTO) 0.1 K/uL (0.00-0.22); BASOPHILS % (AUTO) 0.8 % (0.0-2.0); EOSINOPHILS # (AUTO) 0.1 K/uL (0-0.4); HEMOGLOBIN 15.9 g/dL (12.0-16.0); LYMPHOCYTES # (AUTO) 2.2 K/uL (2.5-16.5); LYMPHOCYTES % (AUTO) 33.4 % (20.5-51.1); MEAN CORPUSCULAR HEMOGLOBIN 32 pg (27-31); MEAN CORPUSCULAR HGB CONC 34 g/dL (33-37); MEAN CORPUSCULAR VOLUME 93.6 fL (80-94); MONOCYTES # (AUTO) 0.7 K/uL (0.8-1.0); MONOCYTES % (AUTO) 10.5 % (1.7-9.3); NEUTROPHILS # (AUTO) 3.5 K/uL (1.8-7.7); NEUTROPHILS % (AUTO) 54.3 % (42.2-75.2); PLATELET COUNT (AUTO) 132 K/uL (140-450); RED BLOOD CELL COUNT(AUTO) 5.02 MIL/uL (4.20-5.40); RED CELL DISTRIBUTION WIDTH 14.8 % (11.6-13.7); WHITE BLOOD COUNT (AUTO) 6.5 K/uL (4.8-10.8)
[2019-05-16 06:47] LABS: CARBON DIOXIDE 24.8 mmol/L (21-32); POTASSIUM 3.8 mmol/L (3.5-5.1)
--- NOTE | 2019-05-16 07:02 | NUR ---
Endorsed patient to AM shift RN for continuity of care; patient in stable condition.
--- NOTE | 2019-05-16 07:03 | NUR ---
RECEIVED REPORT FROM CIRCUIT BOARD DRAFTER NURSE. PATIENT LYING DOWN IN BED SLEEPING, AROUSABLE BY VOICE. NO DISTRESS NOTED. DENIES ANY PAIN. RESPIRATIONS EVEN, UNLABORED, ON ROOM AIR. AAOX4, CALM, COOPERATIVE, SKIN COLOR APPROPRIATE TO ETHNICITY, WARM TO TOUCH. SKIN INTACT. ABDOMEN SOFT, NON-DISTENDED. IV SITE INTACT, PATENT, AND INFUSING IVF PER MD ORDERS. REVIEWED PLAN OF CARE WITH PATIENT. PATIENT VERBALIZED UNDERSTANDING. SAFETY MEASURES IN PLACE, CALL LIGHT WITHIN REACH. WILL CONTINUE TO MONITOR.
[2019-05-16 08:00] VITALS: BP 157/108
[2019-05-16] MEDS: ASPIRIN 81 MG TAB.CHEW PO SCH (08:43)
[2019-05-16] MEDS: SILDENAFIL 20 MG TAB PO SCH ×3 (08:43→17:09)
[2019-05-16] MEDS: LISINOPRIL 20 MG TAB PO SCH (08:43)
--- NOTE | 2019-05-16 08:44 | NUR ---
PATIENT LYING DOWN IN BED SLEEPING, AROUSABLE BY VOICE. NO DISTRESS NOTED. DENIES ANY PAIN. SCHEDULED MEDICATIONS DUE GIVEN. WILL CONTINUE TO MONITOR.
[2019-05-16] MEDS ORDERED: FUROSEMIDE 20 MG TAB PO SCH (09:00)
[2019-05-16] MEDS ORDERED: FUROSEMIDE 20 MG TAB PO PRN (09:00)
--- NOTE | 2019-05-16 09:38 | NUR ---
PATIENT HAS BEEN SCREENED AND CATEGORIZED MODERATE NUTRITION RISK. PATIENT WILL BE SEEN WITHIN 3-5 DAYS OF ADMISSION. 05/16/[address]
[2019-05-16] MEDS ORDERED: MAG SULF 2000 MG/WATER PREMIX 50 ML IV SCH (10:30)
--- NOTE | 2019-05-16 11:45 | NUR ---
PATIENT LYING DOWN IN BED SLEEPING, AROUSABLE BY VOICE. NO DISTRESS NOTED. CONDITION UNCHANGED. WILL CONTINUE TO MONITOR.
[2019-05-16 12:00] VITALS: BP 133/89
--- NOTE | 2019-05-16 12:30 | NUR ---
ECHOCARDIOGRAM BEING PERFORMED AT BEDSIDE. WILL CONTINUE TO MONITOR.
[2019-05-16] MEDS ORDERED: FUROSEMIDE 20 MG/2 ML VIAL IVP SCH (13:30)
--- NOTE | 2019-05-16 14:57 | NUR ---
PATIENT SITTING IN BED ON HER PHONE. NO DISTRESS NOTED. DENIES ANY PAIN. SCHEDULED MEDICATIONS DUE GIVEN. WILL CONTINUE TO MONITOR.
[2019-05-16 16:00] VITALS: BP_SYST 113; BP_SYST 137; BP_DIAS 81; BP_DIAS 84
--- NOTE | 2019-05-16 17:13 | NUR ---
PATIENT SITTING DOWN IN BED WATCHING TV. NO DISTRESS NOTED. DENIES ANY PAIN. SCHEDULED MEDICATIONS DUE GIVEN. WILL CONTINUE TO MONITOR.
--- NOTE | 2019-05-16 17:30 | NUR ---
ASSISTED PATIENT TO SHOWER. WILL CONTINUE TO MONITOR.
[2019-05-16] MEDS: NACL 0.9% 1,000 ML IV SCH (18:24)
--- NOTE | 2019-05-16 18:39 | NUR ---
PATIENT SITTING DOWN IN BED TALKING WITH FAMILY MEMBERS AT BEDSIDE. DENIES ANY PAIN. CONDITION UNCHANGED. WILL CONTINUE TO MONITOR.
--- NOTE | 2019-05-16 19:10 | NUR ---
RECEIVED BEDSIDE REPORT FROM DAY SHIFT NURSE. PATIENT IS AWAKE, ALERT, AND COOPERATIVE. FAMILY AT BEDSIDE. PATIENT IS AMBULATORY AND ABLE TO MAKE NEEDS KNOWN. RESPIRATION EVEN UNLABORED ON ROOM AIR. NO DISTRESS NOTED. SKIN IS WARM AND DRY. IV PATENT AND INTACT. DENIES PAIN. PLAN OF CARE WAS DISCUSSED. BED IS AT LOW POSITION. CALL LIGHT WITHIN REACH AND VERBALIZES ITS USE. WILL CONTINUE TO MONITOR.
--- NOTE | 2019-05-16 19:28 | NUR ---
GAVE REPORT TO PARARESCUE CRAFTSMAN NURSE FOR CONTINUITY OF CARE. PATIENT IN STABLE CONDITION.
[2019-05-16 20:00] VITALS: BP 131/74
--- NOTE | 2019-05-16 20:00 | NUR ---
INITIAL ASSESSMENT DONE. VITALS WERE TAKEN. PATIENT IN STABLE CONDITION. NO DISTRESS NOTED. WILL CONTINUE TO MONITOR.
[2019-05-16] MEDS: CARVEDILOL 3.125 MG TAB PO SCH (20:45)
--- NOTE | 2019-05-16 21:00 | NUR ---
ALL SCHEDULED MEDS WERE GIVEN. NO DISTRESS NOTED. WILL CONTINUE TO MONITOR.
--- NOTE | 2019-05-16 22:37 | NUR ---
CHECKED PATIENT. PATIENT IN BED WATCHING TV NO DISTRESS NOTED. DENIES PAIN. WILL CONTINUE TO MONITOR.
[2019-05-17] VITALS: BP 111/87
--- NOTE | 2019-05-17 | NUR ---
VITALS WERE TAKEN. PATIENT IN STABLE CONDITION. NO DISTRESS NOTED. WILL CONTINUE TO MONITOR.
--- NOTE | 2019-05-17 00:15 | NUR ---
Patient verbalized "seeing spots and feeling like lungs are tight" after taking medication Coreg. Made Dr. Miguel aware and went to bedside at this time to assess patient. Orders made and carried out. Will monitor patient closely. Addendum: 05/18/19 at 0536 by Samy Burden RN Wrong date: date is supposed to be 05/18/2019
--- NOTE | 2019-05-17 01:59 | NUR ---
CHECKED PATIENT. PATIENT SLEEPING RESPIRATION EVEN UNLABORED ON ROOM AIR. NO DISTRESS NOTED. WILL CONTINUE TO MONITOR.
[2019-05-17 04:00] VITALS: BP 121/83
--- NOTE | 2019-05-17 04:00 | NUR ---
VITALS WERE TAKEN. PATIENT IN STABLE CONDITION. NO DISTRESS NOTED. WILL CONTINUE TO MONITOR.
[2019-05-17 06:22] LABS: CARBON DIOXIDE 25.2 mmol/L (21-32); CREATININE 0.9 mg/dL (0.6-1.3); POTASSIUM 4.2 mmol/L (3.5-5.1)
[2019-05-17 06:27] LABS: BASOPHILS # (AUTO) 0.1 K/uL (0.00-0.22); BASOPHILS % (AUTO) 1.6 % (0.0-2.0); CHOL/HDL RATIO 2.5 (1-4.5); EOSINOPHILS % (AUTO) 0.7 % (0.0-4.0); HEMATOCRIT 46.7 % (36-48); HEMOGLOBIN 15.3 g/dL (12.0-16.0); LYMPHOCYTES # (AUTO) 1.8 K/uL (2.5-16.5); LYMPHOCYTES % (AUTO) 28.8 % (20.5-51.1); MAGNESIUM 1.7 mg/dL (1.8-2.4); MEAN CORPUSCULAR HEMOGLOBIN 31 pg (27-31); MEAN CORPUSCULAR HGB CONC 33 g/dL (33-37); MEAN CORPUSCULAR VOLUME 94.2 fL (80-94); MONOCYTES # (AUTO) 0.5 K/uL (0.8-1.0); MONOCYTES % (AUTO) 7.6 % (1.7-9.3); NEUTROPHILS # (AUTO) 3.9 K/uL (1.8-7.7); NEUTROPHILS % (AUTO) 61.3 % (42.2-75.2); PHOSPHORUS 4.4 mg/dL (2.5-4.9); PLATELET COUNT (AUTO) 146 K/uL (140-450); RED BLOOD CELL COUNT(AUTO) 4.96 MIL/uL (4.20-5.40); RED CELL DISTRIBUTION WIDTH 14.8 % (11.6-13.7); WHITE BLOOD COUNT (AUTO) 6.3 K/uL (4.8-10.8)
--- NOTE | 2019-05-17 07:16 | NUR ---
ENDORSED PATIENT TO DAY SHIFT NURSE FOR CONTINUITY OF CARE. PATIENT IN STABLE CONDITION
--- NOTE | 2019-05-17 07:17 | NUR ---
RECEIVED REPORT FROM FAMILY CENTERED SPECIALIST NURSE. PATIENT SITTING DOWN IN BED WATCHING TV, AROUSABLE BY VOICE. NO DISTRESS NOTED. DENIES ANY PAIN. RESPIRATIONS EVEN, UNLABORED, ON ROOM AIR. AAOX4, CALM, COOPERATIVE, SKIN COLOR APPROPRIATE TO ETHNICITY, WARM TO TOUCH. SKIN INTACT. ABDOMEN SOFT, NON-DISTENDED. IV SITE INTACT, PATENT, AND INFUSING IVF PER MD ORDERS. REVIEWED PLAN OF CARE WITH PATIENT. PATIENT VERBALIZED UNDERSTANDING. SAFETY MEASURES IN PLACE, CALL LIGHT WITHIN REACH. WILL CONTINUE TO MONITOR.
[2019-05-17 08:00] VITALS: BP 133/94
[2019-05-17] MEDS: SILDENAFIL 20 MG TAB PO SCH ×3 (08:37→17:18)
[2019-05-17] MEDS: FUROSEMIDE 20 MG/2 ML VIAL IVP SCH (08:37)
[2019-05-17] MEDS: LISINOPRIL 20 MG TAB PO SCH (08:38)
[2019-05-17] MEDS: ASPIRIN 81 MG TAB.CHEW PO SCH (08:38)
[2019-05-17] MEDS: CARVEDILOL 3.125 MG TAB PO SCH ×2 (08:38→20:20)
[2019-05-17] MEDS: MAGNESIUM OXIDE 400 MG TAB PO SCH (08:38)
--- NOTE | 2019-05-17 08:42 | NUR ---
PATIENT SITTING DOWN IN BED. NO DISTRESS NOTED. DENIES ANY PAIN. SCHEDULED MEDICATIONS DUE GIVEN. WILL CONTINUE TO MONITOR.
--- NOTE | 2019-05-17 10:49 | NUR ---
Follow up appointment scheduled with Dr. Ochoa from [facility] on 06/29/19 at 1120 for cardiology specializing in pulmonary hypertension. Address: [address] [place] [address] room 1617. Check in time for pt is at 1050.
--- NOTE | 2019-05-17 11:00 | NUR ---
PATIENT SITTING DOWN IN BED ON HER PHONE. NO DISTRESS NOTED. CONDITION UNCHANGED. WILL CONTINUE TO MONITOR.
[2019-05-17 12:00] VITALS: BP 114/69
--- NOTE | 2019-05-17 12:52 | NUR ---
PATIENT SITTING IN BED WATCHING TV. NO DISTRESS NOTED. DENIES ANY PAIN. SCHEDULED MEDICATIONS DUE GIVEN. WILL CONTINUE TO MONITOR.
--- NOTE | 2019-05-17 12:54 | NUR ---
Appointment slip given to patient with verbal understanding.
--- NOTE | 2019-05-17 15:20 | NUR ---
PATIENT AMBULATING AROUND [facility] WITH FAMILY MEMBER. WILL CONTINUE TO MONITOR.
[2019-05-17 16:00] VITALS: BP 102/68
--- NOTE | 2019-05-17 17:18 | NUR ---
SCHEDULED MEDICATIONS DUE GIVEN. CONDITION UNCHANGED. WILL CONTINUE TO MONITOR.
[2019-05-17] MEDS: NACL 0.9% 1,000 ML IV SCH (18:36)
--- NOTE | 2019-05-17 19:15 | NUR ---
REPORT GIVEN TO LIDAR TECHNICIAN NURSE FOR CONTINUITY OF CARE. PATIENT IN STABLE CONDITION.
--- NOTE | 2019-05-17 19:35 | NUR ---
Received endorsement from AM shift RN; patient A/Ox4, able to make needs known, Italian speaking, ambulatory. Introduced self, updated board. No SOB or distress noted, on room air. IV site on left hand, 22 gauge, intact, running IVF at 10mL/hr. Skin intact. Bed in the lowest position, call light within reach. Initial assessment done. Will continue to monitor.
[2019-05-17 20:00] VITALS: BP 113/77
--- NOTE | 2019-05-17 20:40 | NUR ---
Vitals taken; due meds given. No distress noted.
--- NOTE | 2019-05-17 23:10 | NUR ---
Checks made, no distress noted. Patient asleep, visible chest rise and fall noted.
[2019-05-17] MEDS ORDERED: diphenhydrAMINE 50 MG/ML VIAL IVP SCH ×2 (23:30)
[2019-05-17] MEDS ORDERED: FAMOTIDINE 20 MG/2 ML VIAL IV SCH (23:30)
[2019-05-18] VITALS: BP 119/83
--- NOTE | 2019-05-18 00:15 | NUR ---
Patient verbalized "seeing spots and feeling like lungs are tight" after taking medication Coreg. Made Dr. Miguel aware and went to bedside at this time to assess patient. Orders made and carried out. Will monitor patient closely.
[2019-05-18] MEDS ORDERED: NACL 0.9% 1,000 ML IV ONE (01:20)
--- NOTE | 2019-05-18 01:50 | NUR ---
Patient complained she was hypotensive; checked BP 96/72; placed patient in Trendelenburg position and made Dr. Paniagua and Dr. Miguel aware; both Doctor's went to see patient. Will continue to monitor patient closely. Addendum: 05/18/19 at 0658 by Samy Burden RN Correction - BP taken was 71/36
[2019-05-18] MEDS ORDERED: ALBUTEROL SULFATE/IPRATROPIU 3 ML SOL IH SCH (02:00)
[2019-05-18] MEDS ORDERED: methylPREDNISolone SS 125 MG/2 ML VIAL IVP SCH (02:00)
--- NOTE | 2019-05-18 03:50 | NUR ---
Rechecked vitals; vitals are stable. Will continue to monitor.
[2019-05-18 04:00] VITALS: BP 128/86
--- NOTE | 2019-05-18 05:00 | NUR ---
Rounds done; patient asleep, eyes closed, visible chest rise and fall noted.
[2019-05-18 05:50] LABS: ANION GAP 13.1 (8-16); CARBON DIOXIDE 24.8 mmol/L (21-32); POTASSIUM 4.9 mmol/L (3.5-5.1)
[2019-05-18 05:58] LABS: MAGNESIUM 1.7 mg/dL (1.8-2.4); PHOSPHORUS 3.9 mg/dL (2.5-4.9)
--- NOTE | 2019-05-18 07:05 | NUR ---
Endorsed patient to AM shift RN for continuity of care; patient in stable condition.
--- NOTE | 2019-05-18 07:06 | NUR ---
RECEIVED BEDSIDE REPORT FROM PELON DOUGLAS. PATIENT ON TELE MONITOR WITH STANDARD PRECAUTIONS IN PLACE. PATIENT AAOX4, ON ROOM AIR, NO DISTRESS NOTED, AND AMBULATORY. SKIN INTACT. IV ON R WRIST 22G INFUSING NS AT 10, TKO, IV PATENT AND INTACT. BED IN LOW POSITION, CALL LIGHT WITHIN REACH, SIDE RAILS X2 UP
[2019-05-18 07:10] LABS: BASOPHILS % (AUTO) 0.5 % (0.0-2.0); EOSINOPHILS % (AUTO) 0.8 % (0.0-4.0); HEMATOCRIT 47.3 % (36-48); HEMOGLOBIN 15.4 g/dL (12.0-16.0); LYMPHOCYTES # (AUTO) 1.7 K/uL (2.5-16.5); LYMPHOCYTES % (AUTO) 27.7 % (20.5-51.1); MEAN CORPUSCULAR HEMOGLOBIN 31 pg (27-31); MEAN CORPUSCULAR HGB CONC 33 g/dL (33-37); MEAN CORPUSCULAR VOLUME 95.9 fL (80-94); MONOCYTES # (AUTO) 0.5 K/uL (0.8-1.0); MONOCYTES % (AUTO) 8.5 % (1.7-9.3); NEUTROPHILS # (AUTO) 3.9 K/uL (1.8-7.7); NEUTROPHILS % (AUTO) 62.5 % (42.2-75.2); PLATELET COUNT (AUTO) 168 K/uL (140-450); RED BLOOD CELL COUNT(AUTO) 4.94 MIL/uL (4.20-5.40); RED CELL DISTRIBUTION WIDTH 14.9 % (11.6-13.7); WHITE BLOOD COUNT (AUTO) 6.2 K/uL (4.8-10.8)
[2019-05-18 08:00] VITALS: BP 113/80
[2019-05-18] MEDS ORDERED: MAGNESIUM OXIDE 400 MG TAB PO SCH (09:00)
[2019-05-18] MEDS: ATORVASTATIN 20 MG TAB PO SCH (09:01)
[2019-05-18] MEDS: SILDENAFIL 20 MG TAB PO SCH ×3 (09:01→16:32)
[2019-05-18] MEDS: ASPIRIN 81 MG TAB.CHEW PO SCH (09:02)
[2019-05-18] MEDS: LISINOPRIL 20 MG TAB PO SCH (09:02)
[2019-05-18] MEDS: MAGNESIUM OXIDE 400 MG TAB PO SCH (09:02)
[2019-05-18] MEDS: FUROSEMIDE 20 MG/2 ML VIAL IVP SCH (09:09)
--- NOTE | 2019-05-18 09:12 | NUR ---
ADMINISTERED SCHEDULED MEDS. PATIENT TOLERATED WELL
--- NOTE | 2019-05-18 11:40 | NUR ---
PATIENT SLEEPING, ON ROOM AIR, NO DISTRESS NOTED
[2019-05-18 12:00] VITALS: BP 105/76
--- NOTE | 2019-05-18 12:35 | NUR ---
PATIENT EATING LUNCH, ON ROOM AIR, NO DISTRESS NOTED
--- NOTE | 2019-05-18 14:39 | NUR ---
PATIENT LAYING COMFORTABLY IN BED WATCHING TV, ON ROOM AIR, NO DISTRESS NOTED
--- NOTE | 2019-05-18 15:50 | NUR ---
DR. CHAPMAN AT BEDSIDE
[2019-05-18 16:00] VITALS: BP 115/76
[2019-05-18] MEDS ORDERED: LISI-420 PO (16:23)
[2019-05-18] MEDS ORDERED: ATOR20TA40 PO (16:23)
[2019-05-18] MEDS ORDERED: SILD20TA PO (16:23)
[2019-05-18] MEDS ORDERED: FURO-572 PO (16:23)
--- NOTE | 2019-05-18 17:35 | NUR ---
PATIENT WATCHING TV, ON ROOM AIR, NO DISTRESS NOTED
--- NOTE | 2019-05-18 18:47 | NUR ---
DR. CONTRERAS STATED PATIENT MAY TAKE A SHOWER
--- NOTE | 2019-05-18 19:05 | NUR ---
GAVE BEDSIDE REPORT TO PELON COLES. PATIENT ENDORSED IN STABLE CONDITION
--- NOTE | 2019-05-18 19:05 | NUR ---
RECEIVED BEDSIDE REPORT FROM DAY SHIFT NURSE. PATIENT IS AWAKE, ALERT, AND COOPERATIVE. RESPIRATION EVEN UNLABORED ON ROOM AIR. NO DISTRESS NOTED. DENIES PAIN. SKIN IS WARM AND DRY. IV PATENT AND INTACT. PATIENT IS AMBULATORY AND ABLE TO MAKE NEEDS KNOWN. PLAN OF CARE WAS DISCUSSED. BED IS AT LOW POSITION. CALL LIGHT WITHIN REACH AND VERBALIZES ITS USE. WILL CONTINUE TO MONITOR.
[2019-05-18 20:00] VITALS: BP 120/75
--- NOTE | 2019-05-18 20:00 | NUR ---
INITIAL ASSESSMENT DONE. VITALS WERE TAKEN. PATIENT IN STABLE CONDITION. WILL CONTINUE TO MONITOR
--- NOTE | 2019-05-18 21:00 | NUR ---
CHECKED PATIENT. PATIENT IN BED WATCHING TV NO DISTRESS NOTED. WILL CONTINUE TO MONITOR
--- NOTE | 2019-05-18 23:00 | NUR ---
CHECKED PATIENT. PATIENT SLEEPING RESPIRATION EVEN UNLABORED ON ROOM AIR. NO DISTRESS NOTED. WILL CONTINUE TO MONITOR.
[2019-05-19] VITALS: BP 119/83
--- NOTE | 2019-05-19 | NUR ---
VITALS WERE TAKEN. PATIENT IN STABLE CONDITION. NO DISTRESS NOTED. WILL CONTINUE TO MONITOR.
--- NOTE | 2019-05-19 02:00 | NUR ---
CHECKED PATIENT. PATIENT SLEEPING RESPIRATION EVEN UNLABORED ON ROOM AIR. NO DISTRESS NOTED. WILL CONTINUE TO MONITOR.
[2019-05-19 04:00] VITALS: BP 141/91
--- NOTE | 2019-05-19 04:00 | NUR ---
VITALS WERE TAKEN. PATIENT IN STABLE CONDITION. NO DISTRESS NOTED. WILL CONTINUE TO MONITOR.
--- NOTE | 2019-05-19 06:00 | NUR ---
PATIENT ACCIDENTALLY PULLED HER IV. NO ACTIVE BLEEDING NOTED. CANNULA INTACT. INSERTED A NEW ONE TO THE RIGHT FOREARM 22G AND TOLERATED IT WELL. WILL CONTINUE TO MONITOR
[2019-05-19 06:40] LABS: ANION GAP 14.6 (8-16); CARBON DIOXIDE 23.3 mmol/L (21-32); CREATININE 0.9 mg/dL (0.6-1.3); POTASSIUM 3.9 mmol/L (3.5-5.1)
[2019-05-19 06:42] LABS: BASOPHILS % (AUTO) 0.7 % (0.0-2.0); EOSINOPHILS % (AUTO) 0.9 % (0.0-4.0); HEMATOCRIT 45.6 % (36-48); LYMPHOCYTES # (AUTO) 1.8 K/uL (2.5-16.5); LYMPHOCYTES % (AUTO) 34.1 % (20.5-51.1); MEAN CORPUSCULAR HEMOGLOBIN 31 pg (27-31); MEAN CORPUSCULAR HGB CONC 33 g/dL (33-37); MEAN CORPUSCULAR VOLUME 94.3 fL (80-94); MONOCYTES # (AUTO) 0.6 K/uL (0.8-1.0); MONOCYTES % (AUTO) 10.8 % (1.7-9.3); NEUTROPHILS # (AUTO) 2.8 K/uL (1.8-7.7); NEUTROPHILS % (AUTO) 53.5 % (42.2-75.2); PLATELET COUNT (AUTO) 153 K/uL (140-450); RED BLOOD CELL COUNT(AUTO) 4.84 MIL/uL (4.20-5.40); RED CELL DISTRIBUTION WIDTH 14.9 % (11.6-13.7); WHITE BLOOD COUNT (AUTO) 5.2 K/uL (4.8-10.8)
[2019-05-19 06:46] LABS: MAGNESIUM 1.6 mg/dL (1.8-2.4); PHOSPHORUS 3.7 mg/dL (2.5-4.9)
--- NOTE | 2019-05-19 07:12 | NUR ---
RECEIVED BEDSIDE REPORT FROM PELON COLES. PT STABLE, AWAKE, ALERT AND ORIENTED X4. NO SIGNS OF DISTRESS NOTED. DENIES PAIN OR SOB. NO REDNESS, SWELLING, OR INFLAMMATION NOTED ON IV SITE. CALL GUERRERO WITHIN REACH. BED IN LOWEST POSITION. SAFETY MEASURES IN PLACE. PLAN OF CARE REVIEWED.
--- NOTE | 2019-05-19 07:13 | NUR ---
ENDORSED PATIENT TO DAY SHIFT NURSE FOR CONTINUITY OF CARE. PATIENT IN STABLE CONDITION.
[2019-05-19] MEDS: NACL 0.9% 1,000 ML IV SCH (07:31)
[2019-05-19 08:00] VITALS: BP 148/98
[2019-05-19] MEDS: MAGNESIUM OXIDE 400 MG TAB PO SCH (08:51)
[2019-05-19] MEDS: ATORVASTATIN 20 MG TAB PO SCH (08:52)
[2019-05-19] MEDS: SILDENAFIL 20 MG TAB PO SCH ×2 (08:52→12:21)
[2019-05-19] MEDS: ASPIRIN 81 MG TAB.CHEW PO SCH (08:52)
[2019-05-19] MEDS: LISINOPRIL 20 MG TAB PO SCH (08:53)
--- NOTE | 2019-05-19 08:54 | NUR ---
ADMINISTERED SCHEDULED MEDICATIONS, PT TOLERATED WELL. NO OTHER NEEDS AT THIS TIME.
[2019-05-19] MEDS ORDERED: FUROSEMIDE 20 MG TAB PO SCH (09:00)
--- NOTE | 2019-05-19 10:20 | NUR ---
DR CALERO AT THE BEDSIDE TO SPEAK WITH PT REGARDING PLAN OF CARE.
--- NOTE | 2019-05-19 12:30 | NUR ---
ADMINISTERED SCHEDULED MEDICATION, PT TOLERATED WELL. D/C INSTRUCTIONS AND PAPERWORK GIVEN, PT VERBALIZED UNDERSTANDING. QUESTIONS AND CONCERNS WERE ADDRESSED. D/C IV, CATHETER TIP INTACT, BLEEDING CONTROLLED. SKIN INTACT, VACCINES N/A. PT HAS ALL OF BELONGINGS. PT WILL BE PICKED UP BY GIRLFRIEND TO BE TAKEN BACK HOME. WILL ESCORT PATIENT TO THE LOBBY.
--- NOTE | 2019-05-19 13:05 | NUR ---
ESCORTED PT TO THE LOBBY. PT STABLE, AMBULATED WITH STEADY GAIT, COMMUNICATED PROPERLY WITH STAFF. PT PICKED UP BY GIRLFRIEND TO BE TAKEN BACK HOME.
== END 2019-05-19 13:05 | disposition home or self-care (01) | DRG 194 ==
LOC: MED 15:48 → MTU 18:43 → MED 18:50
PROVIDERS: ADMIT General Practice; ATTEND General Practice
DX: I11.0 Hypertensive heart disease with heart failure (principal); E43 Unspecified severe protein-calorie malnutrition; D69.6 Thrombocytopenia, unspecified; I27.21 Secondary pulmonary arterial hypertension; I95.89 Other hypotension; E83.42 Hypomagnesemia; D75.1 Secondary polycythemia; I42.9 Cardiomyopathy, unspecified; I50.43 Acute on chronic combined systolic (congestive) and diastolic (congestive) heart failure; Z68.33 Body mass index [BMI] 33.0-33.9, adult; E66.9 Obesity, unspecified; Z71.3 Dietary counseling and surveillance; E78.5 Hyperlipidemia, unspecified; Z82.49 Family history of ischemic heart disease and other diseases of the circulatory system; Z82.3 Family history of stroke; Z91.19 Patient's noncompliance with other medical treatment and regimen; T50.905A Adverse effect of unspecified drugs, medicaments and biological substances, initial encounter; Y92.89 Other specified places as the place of occurrence of the external cause; F12.90 Cannabis use, unspecified, uncomplicated; E02 Subclinical iodine-deficiency hypothyroidism; Z98.51 Tubal ligation status; I36.1 Nonrheumatic tricuspid (valve) insufficiency; I16.0 Hypertensive urgency; F43.9 Reaction to severe stress, unspecified
CPT/HCPCS: 36415; 36600; 71045; 80048; 80053; 80305; 81001; 81025; 82803; 82948; 83036; 83735; 83880; 84100; 84439; 84443; 84484; 85025; 85379; 85610; 85730; 87081; 93005; 99285; G0482; J1200; J1940; J3475; J3490; J7030; J7620; Q0092

== ENCOUNTER 2020-01-23 20:33 | Inpatient (IN) | payer MEDICAID ==
[~2020-01-23] VITALS: Ht 154.9 cm; Wt 81.6 kg
[~2020-01-23 20:33] MED LIST changes: -AMLO2.5T PO; -CARV3.122 PO; +SILD20TA PO
--- NOTE | 2020-01-23 20:45 | NUR ---
AMBULATED TO ER BED 10
[2020-01-23] MEDS ORDERED: NITROGLYCERIN 0.4 MG TAB SL STA (20:47)
[2020-01-23] MEDS ORDERED: SODIUM CHLORIDE FLUSH 10 ML SYR IVF STA (20:47)
[2020-01-23] MEDS ORDERED: ADENOSINE 6 MG/2 ML VIAL IVP ONE ×3 (20:55→20:57)
[2020-01-23 20:59] VITALS: BP 98/74
--- NOTE | 2020-01-23 20:59 | NUR ---
PT BIB FRIEND C/O CP X 1 HOUR. PT REPORTS NON-RADIATING PRESSURE CP AT 10/10, PT UNABLE TO DESCRIBE LOCATION. EKG READS SVT, DR VAZ NOTIIED. PMH:HF, PULMONARY HTN
--- NOTE | 2020-01-23 21:00 | NUR ---
PER DR VAZ GIVE 12MG ADENOSINE UP TO 2 X FOR CARDIOVERT, EKG SHOWS SVT AT 190. DR VAZ AT BEDSIDE, PT PLACED ON ZOLL FOR SAFETY.
--- NOTE | 2020-01-23 21:05 | NUR ---
12MG ADENOSINE IVP 2X FAILED TO CONVERT PT.
--- NOTE | 2020-01-23 21:10 | NUR ---
PT SVT CONVERTED BY ITSELF, BP DOWN TO 72/33, DR VAZ NOTIFIED. 1 L NS ADMINISTERED W/ PRESSURE BAG.
--- NOTE | 2020-01-23 21:11 | NUR ---
nitro no given due to hypotention
[2020-01-23] MEDS ORDERED: NACL 0.9% 1,000 ML IV SCH (21:15)
[2020-01-23] MEDS ORDERED: NACL 0.9% 500 ML IV SCH (21:15)
[2020-01-23 21:26] LABS: BASOPHILS # (AUTO) 0.1 K/uL (0.00-0.22); EOSINOPHILS % (AUTO) 0.4 % (0.0-4.0); HEMATOCRIT 52.5 % (36-48); LYMPHOCYTES # (AUTO) 1.7 K/uL (2.5-16.5); LYMPHOCYTES % (AUTO) 22.3 % (20.5-51.1); MEAN CORPUSCULAR HEMOGLOBIN 31 pg (27-31); MEAN CORPUSCULAR HGB CONC 33 g/dL (33-37); MEAN CORPUSCULAR VOLUME 94.4 fL (80-94); MONOCYTES # (AUTO) 0.7 K/uL (0.8-1.0); MONOCYTES % (AUTO) 9.1 % (1.7-9.3); NEUTROPHILS # (AUTO) 5.3 K/uL (1.8-7.7); NEUTROPHILS % (AUTO) 67.2 % (42.2-75.2); PLATELET COUNT (AUTO) 154 K/uL (140-450); RED BLOOD CELL COUNT(AUTO) 5.56 MIL/uL (4.20-5.40); RED CELL DISTRIBUTION WIDTH 16.6 % (11.6-13.7); WHITE BLOOD COUNT (AUTO) 7.8 K/uL (4.8-10.8)
--- NOTE | 2020-01-23 21:28 | NUR ---
PER DR VAZ, CHECK BP AFTER BOLUS FINISHES
[2020-01-23 21:33] LABS: PROTHROMBIN TIME 11.3 secs (10.8-13.4)
--- NOTE | 2020-01-23 21:46 | NUR ---
BOLUS FINISHED, PER DR VAZ GIVE ANOTHER 500ML NS BOLUS. PT TOLERATED 1L BOLUS WELL, LUNG SOUNDS CLEAR, NO EDEMA PRESENT
[2020-01-23 21:47] LABS: ALBUMIN 3.1 g/dL (3.4-5.0); ANION GAP 11.8 (8-16); CARBON DIOXIDE 26.8 mmol/L (21-32); CREATININE 1.2 mg/dL (0.6-1.3); POTASSIUM 4.6 mmol/L (3.5-5.1); TOTAL BILIRUBIN 0.9 mg/dL (0.0-1.0)
[2020-01-23] MEDS ORDERED: DOCUSATE SODIUM 100 MG GELCAP PO PRN (22:05)
[2020-01-23] MEDS ORDERED: ONDANSETRON 4 MG/2 ML VIAL IM/IVP PRN (22:05)
[2020-01-23] MEDS ORDERED: ACETAMINOPHEN 325 MG TAB PO PRN (22:05)
[2020-01-23] MEDS ORDERED: NOREPINEPHRINE 4 MG in DEXTROSE 5% 250 ML IV PRN (22:15)
[2020-01-23] MEDS ORDERED: HEPARIN PER PHARMACY MC PRN (22:15)
[2020-01-23] MEDS ORDERED: hePARIN / DEXT 5% PREMIX 250 ML IV SCH ×2 (22:15→23:10)
[2020-01-23] MEDS ORDERED: NOREPINEPHRINE 4 MG/4 ML VIAL IV ONE (22:16)
--- NOTE | 2020-01-23 22:31 | NUR ---
PT BP 95/60, LEVOPHED RUNNING AT 15ML/HR, 4MCG/MIN
[2020-01-23] MEDS ORDERED: LORazepam 2 MG/ML VIAL IVP SCH (22:40)
--- NOTE | 2020-01-23 22:45 | NUR ---
PATIENT TRANSFERRED TO ICU VIA GURNEY, TRANSFERRED TO BED 3 WITHOUT INCIDENT.
--- NOTE | 2020-01-23 22:47 | NUR ---
Patient will be admitted to care of [facility]. Admited to ICU 3. Belongings list completed. Report to FELICIA BIRD.
[2020-01-23 22:50] VITALS: BP 128/76
[2020-01-23 23:00] VITALS: BP 63/36
[2020-01-23 23:00] LABS: FREE T4 (FREE THYROXINE) 1.02 ng/dL (0.76-1.46); MAGNESIUM 1.8 mg/dL (1.8-2.4); PHOSPHORUS 3.8 mg/dL (2.5-4.9); THYROID STIMULATING HORMONE 4.6 uIU/mL (0.34-3.74)
--- NOTE | 2020-01-23 23:00 | NUR ---
RECEIVED ENDORSEMENT FROM ER NURSE AT BEDSIDE. PATIENT AWAKE AND ALERT, ANOx4, FOLLOWS ALL COMMANDS, AND MAKES NEEDS KNOWN. NASAL CANNULA IN PLACE 2LPM, SATURATIONS 100%. BREATHING IS EVEN AND UNLABORED, DENIES COUGH, CONGESTION, SOB, OR CHEST PAIN. LUNG SOUNDS ARE DIMINISHED. S1S2, CONNECTED TO MONITOR, SR-HEART RATE 80 BPM. LEVOPHED INFUSING AT 4 MCG/MIN. LEFT AC PERIPHERAL IV, 20G, FLUSHED AND PATENT WITHOUT SYMPTOMS. ABDOMEN IS LARGE AND NONTENDER WITH ACTIVE BOWEL SOUNDS. PATIENT IS CONTINENT ABLE TO NOTIFY NURSE FOR BATHROOM NEEDS. BILATERAL LOWER EXTREMITIES ARE EDEMATOUS, NONPITTING, SLIGHTLY MOTTLED/RED. ELEVATED WITH PILLOWS ON EACH LEG. HX OF PULMONARY HTN. PATIENT UPDATED ON TREATMENT AND ICU UNIT AND ROOM. VERBALIZES UNDERSTANDING. NO COMPLAINTS AT THIS TIME. SAFETY ALARMS IN PLACE, BED LOCKED AND IN LOWEST POSITION, CALL LIGHT WITHIN REACH. WILL CONTINUE ADMISSION ORDERS.
[2020-01-23 23:15] VITALS: BP 109/85
[2020-01-23] MEDS ORDERED: FURO-572 PO (23:22)
[2020-01-23 23:30] VITALS: BP 115/66
--- NOTE | 2020-01-23 23:35 | NUR ---
[facility] SWAB OF NARES AND INFLUENZA A & B COLLECTED AND SENT TO LAB. ORIENTED PATIENT FOR URINE SAMPLE, PATIENT UNABLE TO PROVIDE URINE AT ER. AWARE ICU DOES NOT HAVE A RESTROOM AND ALSO WILL BE ON HEPARIN DRIP AND PATIENT IS BEDREST TO AVOID INJURIES. PT VERBALIZES UNDERSTANDING TO NOTIFY RN OF VOIDING NEEDS AND BEDPAN ALREADY AT BEDSIDE.
[2020-01-23 23:45] VITALS: BP 109/85
[2020-01-24] VITALS (19 sets, daily range): BP systolic 108–157; BP diastolic 60–127
--- NOTE | 2020-01-24 | NUR ---
AT BEDSIDE TO ASSESS PATIENT, CONSENT FOR CENTRAL LINE INSERTION COMPLETE AND RN WITNESS, BUT PER DR. OCONNOR, HOLD CENTRAL LINE INSERTION TO AVOID ANOTHER SVT EPISODE FOR NOW INFUSE MEDICATIONS VIA PERIPHERAL IV's.
--- NOTE | 2020-01-24 00:10 | NUR ---
PER MD ORDER, START HEPARIN DRIP. 3600 UNIT HEPARIN BOLUS PER PROTOCOL AND STARTED HEPARIN DRIP AT 7.3 ML/HR-730 UNITS/HOUR. WITNESSED AND VERIFIED BY RN AND CHARGE NURSE. PROVIDED PATIENT ON EDUCATION AND RISK FOR BLEEDING, PATIENT VERBALIZES UNDERSTANDING. WILL CONTINUE CLOSE MONITORING.
[2020-01-24] MEDS: NACL 0.9% 1,000 ML IV SCH ×2 (00:12→17:33)
--- NOTE | 2020-01-24 00:30 | NUR ---
LEVOPHED DRIP TURNED OFF, SBP TRENDING IN 120-130's WITHIN PAST HOUR. WILL CONTINUE TO MONITOR FOR NEED FOR PRESSORS.
--- NOTE | 2020-01-24 02:39 | NUR ---
RESTING WELL IN BED, EYES CLOSED, ABLE TO MOVE ALL EXTREMITIES INDEPENDENTLY, NASAL CANNULA IN PLACE, 2LPM, BREATHING IS EVEN AND UNLABORED, VISIBLE CHEST RISE AND FALL. BEDSIDE TABLE AND ALL VALUABLES WITHIN REACH, CALL LIGHT WITHIN REACH.
--- NOTE | 2020-01-24 03:20 | NUR ---
GIVEN BEDPAN FOR VOIDING NEEDS. PATIENT REINSTRUCTED TO PROVIDE URINE SAMPLE. WHEN PATIENT WIPED, SHE DROPPED WIPES IN BEDPAN AND SOAKED UP URINE, UNABLE TO COLLECT URINE SAMPLE. WILL COLLECT NEXT TIME PATIENT NEEDS TO VOID.
--- NOTE | 2020-01-24 04:40 | NUR ---
PT RESTING WELL, EYES CLOSED. WAKES UP UPON VOICE, OFFERED PATIENT SPONGE BATH/ORAL CARE. PT REQUESTS TO SLEEP AND WILL DO MORNING CARE IN THE MORNING AFTER BREAKFAST. DENIES PAIN, DENIES CHEST PAIN OR DISCOMFORT. WILL ENDORSE TO A.M NURSE.
--- NOTE | 2020-01-24 06:11 | NUR ---
LAB AT BEDSIDE TO DRAW FOR HEPARIN DRIP PROTOCOL. PT STILL HAS EYES CLOSED. ORIENTED TO ADMISSION PAPERWORK AND NEED TO SIGN, PATIENT WILL SIGN LATER WHEN SHE IS AWAKE AND CAN READ THROUGH ALL PAPERWORK.
[2020-01-24 06:52] LABS: CHOL/HDL RATIO 2.3 (1-4.5)
--- NOTE | 2020-01-24 07:30 | NUR ---
RECEIVED BEDSIDE REPORT FROM GRADE RECORDER RN. PT IS AWAKE, AAOX4. ABLE TO MAKE NEEDS KNOWN AND FOLLOWS COMMANDS. AFEBRILE. NORMAL SINUS RHYTHM ON MONITOR. S1 S2 HEARD. PULSES PALPABLE TO ALL EXTREMITIES. EDEMA AND REDNESS NOTED TO BLE. CAP REFILL < 2 SEC. PT IS ON O2 AT 2 LPM/NC. LUNGS SOUND CLEAR BILATERALLY WITH EQUAL CHEST RISE. NO COUGH, SOB OR CHEST PAIN NOTED AT THIS TIME. PERIPHERAL IV G20 TO LEFT ANTECUBITAL AND G22 TO LEFT FOREARM ASYMPTOMATIC, PATENT AND INTACT, RUNNING HEPARIN DRIP AT 730 UNITS/HR AND IVF NS AT 50 ML/HR. ABDOMEN ROUND, SOFT, NONTENDER, BOWEL SOUNDS PRESENT X 4 QUADRANTS. SKIN IS INTACT, DRY AND WARM TO TOUCH. HOB AT 30 DEGREES. BED IN LOWEST POSITION LOCKED. CALL LIGHT WITHIN REACH. NO S/SX OF DISTRESS NOTED AT THIS TIME. WILL CONTINUE TO MONITOR.
--- NOTE | 2020-01-24 08:15 | NUR ---
DR. SEGURA AND RESIDENT GROUP IN TO SEE PT. DR. ROMERO AWARE OF TROPONIN LEVEL 0.457. PT IS STILL ON HEPARIN DRIP. WILL FOLLOW UP ON ORDERS.
--- NOTE | 2020-01-24 08:26 | NUR ---
PATIENT HAS BEEN SCREENED AND CATEGORIZED MODERATE NUTRITION RISK. PATIENT WILL BE SEEN WITHIN 3-5 DAYS OF ADMISSION. 01/26/20 01/28/[address]
[2020-01-24] MEDS: ASPIRIN 81 MG TAB.CHEW PO SCH (08:37)
[2020-01-24] MEDS: SILDENAFIL 20 MG TAB PO SCH ×3 (08:37→16:54)
--- NOTE | 2020-01-24 08:40 | NUR ---
PT SEEN AND EXAMINED BY DR. RODRIGUEZ AT BEDSIDE. WILL FOLLOW UP WITH ANY NEW ORDERS.
--- NOTE | 2020-01-24 08:57 | NUR ---
ULTRASOUND ABDOMEN BEING DONE AT BEDSIDE. PT TOLERATING WELL.
[2020-01-24] MEDS: FUROSEMIDE 20 MG TAB PO SCH (09:32)
--- NOTE | 2020-01-24 10:00 | NUR ---
PT HAD MODERATE AMOUNT OF SOFT, BROWN BOWEL MOVEMENT USING BEDSIDE COMMODE. NO C/O SOB OR CHEST PAIN. SAFETY PRECAUTIONS IN PLACE.
[2020-01-24] MEDS ORDERED: PROBIOTIC SCREEN 1 EA MISC MC PRN (10:20)
--- NOTE | 2020-01-24 12:10 | NUR ---
LUNCH PROVIDED, PT ABLE TO EAT INDEPENDENTLY. ABLE TO MAKE NEEDS KNOWN. NO S/SX OF DISTRESS NOTED.
[2020-01-24 12:47] LABS: BASOPHILS % (AUTO) 0.7 % (0.0-2.0); EOSINOPHILS % (AUTO) 0.4 % (0.0-4.0); HEMATOCRIT 48.4 % (36-48); HEMOGLOBIN 15.7 g/dL (12.0-16.0); LYMPHOCYTES # (AUTO) 1.9 K/uL (2.5-16.5); LYMPHOCYTES % (AUTO) 27.8 % (20.5-51.1); MEAN CORPUSCULAR HEMOGLOBIN 31 pg (27-31); MEAN CORPUSCULAR HGB CONC 32 g/dL (33-37); MEAN CORPUSCULAR VOLUME 94.6 fL (80-94); MONOCYTES # (AUTO) 0.5 K/uL (0.8-1.0); MONOCYTES % (AUTO) 6.6 % (1.7-9.3); NEUTROPHILS # (AUTO) 4.5 K/uL (1.8-7.7); NEUTROPHILS % (AUTO) 64.5 % (42.2-75.2); PLATELET COUNT (AUTO) 133 K/uL (140-450); RED BLOOD CELL COUNT(AUTO) 5.11 MIL/uL (4.20-5.40); RED CELL DISTRIBUTION WIDTH 16.6 % (11.6-13.7)
[2020-01-24 12:57] LABS: ANION GAP 12.2 (8-16); CARBON DIOXIDE 26.7 mmol/L (21-32); CREATININE 0.9 mg/dL (0.6-1.3); POTASSIUM 3.9 mmol/L (3.5-5.1)
[2020-01-24 13:00] LABS: MAGNESIUM 1.5 mg/dL (1.8-2.4); PHOSPHORUS 3.2 mg/dL (2.5-4.9)
--- NOTE | 2020-01-24 15:15 | NUR ---
PT VOIDED 250 ML OF LIGHT ELIZABETH URINE USING BEDSIDE COMMODE. URINE SAMPLE SENT TO LAB.
--- NOTE | 2020-01-24 18:06 | NUR ---
PT SEEN AND EXAMINED BY DR. MTZ. UPDATES GIVEN ON PT'S CONDITION. DR. MTZ ALSO MADE AWARE OF INCREASE IN DIASTOLIC BLOOD PRESSURE. WILL FOLLOW UP ON ORDERS.
[2020-01-24] MEDS ORDERED: CARVEDILOL 6.25 MG TAB PO SCH (18:30)
[2020-01-24] MEDS: MAG SULF 2000 MG/WATER PREMIX 50 ML IV SCH ×2 (18:40→21:00)
--- NOTE | 2020-01-24 18:40 | NUR ---
PT REFUSED COREG. PT STATED SHE HAD EPISODES OF DECREASED BLOOD PRESSURE AND DIZZINESS IN THE PAST DUE TO COREG.
--- NOTE | 2020-01-24 19:26 | NUR ---
REPORT GIVEN TO CONTRIBUTION SOLICITOR RN FOR CONTINUITY OF CARE. PT IS IN STABLE CONDITION.
--- NOTE | 2020-01-24 19:30 | NUR ---
RECEIVED REPORT FROM DAYSHIFT NURSE AT PATIENTS BEDSIDE, PATIENT AWAKE AND ALERT. ANOx4, MAKES NEEDS KNOWN, AND FOLLOWS ALL COMMANDS. ON ROOM AIR, SATURATIONS 98%, LUNG SOUNDS CLEAR. NO SOB OR COUGH/CONGESTION NOTED. CONNECTED TO CLINICAL RESEARCH MANAGEMENT ASSOCIATE, HEART IN SR, 84 BPM, S1S2. BILATERAL LOWER EXTREMITIES HAVE GENERALIZED EDEMA AND SOME REDNESS, SKIN INTACT. ASSOC. WITH HX: PULMONARY HTN/CHF. LEFT AC PERIPHERAL IV 20G, FLUSHED AND PATENT, SALINE LOCKED. LEFT FOREARM PERIPHERAL IV, 22G, FLUSHED AND PATENT WITHOUT SYMPTOMS, INFUSING NS @ 50ML/HR AND MAGNESIUM AT 25ML/HR. ABDOMEN IS LARGE AND NONTENDER, WITH ACTIVE BOWEL SOUNDS. PATIENT IS CONTINENT WITH BEDSIDE COMMODE IN PLACE. SKIN WARM AND DRY, AFEBRILE. PATIENT DENIES PAIN. SIDERAILS UPx2, BED LOCKED AND IN LOWEST POSITION. CALL LIGHT WITHIN REACH. PATIENT UPDATED ON TREATMENT/CAREPLAN. WILL CONTINUE TO MONITOR.
--- NOTE | 2020-01-24 20:26 | NUR ---
PAGED DR. MTZ.
[2020-01-24 20:45] LABS: APPEARANCE,URINE CLEAR (CLEAR); BILIRUBIN,URINE NEGATIVE (NEGATIVE); BLOOD, URINE TRACE-I (NEGATIVE); COLOR,URINE YELLOW (YELLOW); LEUKOCYTE ESTERASE ,URINE NEGATIVE (NEGATIVE); NITRITE, URINE NEGATIVE (NEGATIVE); PH,URINE 5.5 (5.0-9.0); UGLUCOSE NEGATIVE (NEGATIVE)
--- NOTE | 2020-01-24 20:45 | NUR ---
DR. MTZ CALLED BACK, MADE AWARE PATIENT REFUSED COREG AND MORNING DOSE WAS NOT GIVEN, PT CURRENTLY STABLE BUT PREVIOUS TRENDS SHOW SBP IN 150's. CONFIRMED TO CONTINUE TO MONITOR AND DR. MTZ WILL BE IN TOMORROW TO REEVALUATE AND ADJUST MEDICATIONS. PT MADE AWARE, VERBALIZES UNDERSTANDING. ENCOURAGED PATIENT TO PRACTICE BREATHING EXERCISES AND TO EVALUATE PERSONAL STRESSORS. PT STABLE, WILL CONTINUE TO MONITOR.
[2020-01-24 20:50] LABS: BARBITURATE, URINE NEGATIVE ng/ml (NEG <=200); BENZODIAZEPINE, URINE NEGATIVE ng/mL (NEG <=200); CANNABINOID, URINE POSITIVE ng/mL (NEG <=50); COCAINE, URINE NEGATIVE ng/mL (NEG <=300); OPIATE, URINE NEGATIVE ng/mL (NEG <=2000); PHENCYCLIDINE SCREEN,URINE NEGATIVE ng/mL (NEG <=25)
[2020-01-24] MEDS ORDERED: ATORVASTATIN 20 MG TAB PO SCH (21:00)
--- NOTE | 2020-01-24 22:07 | NUR ---
PT COMPLAINING OF PAIN AT LEFT AC PERIPHERAL IV SITE. FLUSHED AND PATENT. REMOVED FOR DISCOMFORT, NO SIGNS OF KINKS. SITE IS BANDAGED.
[2020-01-24] MEDS ORDERED: NITROGLYCERIN 0.4 MG TAB SL PRN (22:10)
[2020-01-24 22:14] LABS: RBC,URINE 0-5 /HPF (0-5); WBC,URINE 0-5 /HPF (0-5)
[2020-01-25] VITALS: BP 152/116
--- NOTE | 2020-01-25 00:03 | NUR ---
BEDSIDE COMMODE IN PLACE, PATIENT ALERTS RN FOR COMMODE NEEDS. VOIDED 150ML OF ELIZABETH URINE. NO INCIDENT NOTED. TEMPERATURE ON LOWER SIDE BUT PATIENT DENIES FEVER CHILLS. ALL OTHER VITALS WITHIN NORMAL LIMITS, NO PAIN AT THIS TIME, ALL NEEDS MET. PATIENT ABLE TO SELF TURN. ANOx4. WILL CONTINUE TO MONITOR.
[2020-01-25 02:00] VITALS: BP 161/95
--- NOTE | 2020-01-25 02:11 | NUR ---
PT SELF TURNS IN BED, SIDERAILS UPx3, BED LOCKED AND IN LOWEST POSITION. ON ROOM AIR, NO COMPLAINTS OF CHEST DISCOMFORT OR PALPITATIONS OR NUMBNESS/TINGLING. ONLY REPORTS SORENESS FROM THE SVT EPISODE. ORIENTED TO CALL LIGHT AND DISCUSSED CAREPLAN/TREATMENT. ADVISED PATIENT ABOUT SUBSTANCE ABUSE CESSATION. PATIENT VERBALIZES UNDERSTANDING. IN BED, DENIES PAIN. CONTINUE CARDIAC MONITORING.
[2020-01-25 04:00] VITALS: BP 159/117
--- NOTE | 2020-01-25 04:15 | NUR ---
ASSISTED PATIENT TO BEDSIDE COMMODE, VOIDED ELIZABETH URINE, NO BOWEL MOVEMENT, NO COMPLAINTS OF DIARRHEA/CONSTIPATION OR STOMACH PAIN. BACK IN BED WITHOUT INCIDENT. ORIENTED TO MORNING CARE/SPONGE BATH. PATIENT REQUESTS MORNING CARE LATER. WOULD LIKE TO GO BACK TO SLEEP. PROVIDED PATIENT WITH CLEANSING TOWEL FOR HANDS AND FACE. BEDSIDE COMMODE EMPTIED AND CLEANED. CALL LIGHT WITHIN REACH. ALL VITALS WNL, BP SLIGHTLY ELEVATED, SBP 161 BUT PATIENT WITHOUT SYMPTOMS.
[2020-01-25 06:00] VITALS: BP 134/111
[2020-01-25 06:07] LABS: HEPATITIS A ANTIBODY IGM Negative (Negative); HEPATITIS B CORE AB TOTAL Negative (Negative); HEPATITIS B SURFACE ANTIBODY Non Reactive (.); HEPATITIS B SURFACE ANTIGEN Negative (Negative)
--- NOTE | 2020-01-25 06:10 | NUR ---
PATIENT WOKE UP WHEN BLOOD PRESSURE MEASURED. PATIENT DENIES ANY PAIN OR CHEST DISCOMFORT AND ASKING ABOUT BREAKFAST. PATIENT RESTED WELL THROUGHOUT NIGHT WITHOUT INCIDENT, BLOOD PRESSURE SLIGHTLY ELEVATED, DIASTOLIC ELEVATED, GREATER THAN 100, CLOSELY MONITORED. PROVIDED PATIENT WITH SPONGE BATH SUPPLIES AND ORAL CARE DONE. PATIENT INDEPENDENT, RN AT BEDSIDE FOR STANDBY ASSISTANCE. PATIENT OUT OF BED AND SITTING ON CHAIR. RN CHANGED ALL LINEN AND CHUCKS AND PROVIDED WITH NEW GOWN AND SOCKS. ALL NEEDS MET AT THIS TIME, PATIENT AWAKE AND WATCHING TV, IV AT LEFT FOREARM PATENT, CONTINUOUSLY INFUSING NS AT 50ML/HR. ON ROOM AIR AND ALL LEADS IN PLACE.
[2020-01-25 06:21] LABS: BILIRUBIN,DIRECT 0.3 mg/dL (0.0-0.3); PHOSPHORUS 3.4 mg/dL (2.5-4.9); TOTAL BILIRUBIN 0.9 mg/dL (0.0-1.0)
[2020-01-25 06:25] LABS: ANION GAP 15.8 (8-16); CARBON DIOXIDE 22.5 mmol/L (21-32); CREATININE 0.8 mg/dL (0.6-1.3); POTASSIUM 4.3 mmol/L (3.5-5.1)
[2020-01-25 06:29] LABS: BASOPHILS # (AUTO) 0.2 K/uL (0.00-0.22); BASOPHILS % (AUTO) 2.8 % (0.0-2.0); EOSINOPHILS # (AUTO) 0.1 K/uL (0-0.4); EOSINOPHILS % (AUTO) 1.1 % (0.0-4.0); HEMATOCRIT 49.5 % (36-48); HEMOGLOBIN 16.2 g/dL (12.0-16.0); LYMPHOCYTES # (AUTO) 1.1 K/uL (2.5-16.5); LYMPHOCYTES % (AUTO) 19.1 % (20.5-51.1); MEAN CORPUSCULAR HEMOGLOBIN 31 pg (27-31); MEAN CORPUSCULAR HGB CONC 33 g/dL (33-37); MEAN CORPUSCULAR VOLUME 94.2 fL (80-94); MONOCYTES # (AUTO) 0.5 K/uL (0.8-1.0); MONOCYTES % (AUTO) 9.1 % (1.7-9.3); NEUTROPHILS % (AUTO) 67.9 % (42.2-75.2); PLATELET COUNT (AUTO) 129 K/uL (140-450); RED BLOOD CELL COUNT(AUTO) 5.25 MIL/uL (4.20-5.40); RED CELL DISTRIBUTION WIDTH 16.3 % (11.6-13.7); WHITE BLOOD COUNT (AUTO) 5.9 K/uL (4.8-10.8)
--- NOTE | 2020-01-25 07:30 | NUR ---
BEDSIDE REPORT RECEIVED FROM ASSOCIATE SCHOOL PSYCHOLOGIST NURSE, PT AWAKE ALERT OX4, RESP EVEN UNLABORED ON RA, SKIN WARM DRY COLOR WNL, PT DENIES PAIN OR DISCOMFORT, VITALS STABLE ON MONITOR, BREATH SOUNDS CLEAR BILAT, ABD SOFT NON DISTENDED, PT CONTINENT, BEDSIDE COMMODE AT BEDSIDE, BILAT LOWER EXT WITH EDEMA AND SLIGHT REDNESS, PLAN OF CARE REVIEWED, ALL SAFETY MEASURES ARE IN PLACE, WILL CONTINUE TO MONITOR.
[2020-01-25 08:00] VITALS: BP 144/95
--- NOTE | 2020-01-25 08:01 | NUR ---
PT TOOK 100% BREAKFAST, NO N/V, BRANDON WELL.
[2020-01-25] MEDS: SILDENAFIL 20 MG TAB PO SCH ×2 (08:50→12:04)
[2020-01-25] MEDS: FUROSEMIDE 20 MG TAB PO SCH (08:50)
[2020-01-25] MEDS ORDERED: LISINOPRIL 20 MG TAB PO SCH (09:00)
[2020-01-25] MEDS ORDERED: CARVEDILOL 6.25 MG TAB PO SCH (09:00)
--- NOTE | 2020-01-25 09:05 | NUR ---
PT UP TO BEDSIDE COMMODE WITH MINIMAL ASSIST.
[2020-01-25] MEDS: ASPIRIN 81 MG TAB.CHEW PO SCH (09:24)
[2020-01-25 12:00] VITALS: BP 147/109
--- NOTE | 2020-01-25 12:53 | NUR ---
DR. RODRIGUEZ AT BEDSIDE FOR EVAL. PT CONDITION DISCUSSED, PT TO START PT TO GET OUT OF BED AND AMBULATE.
[2020-01-25] MEDS ORDERED: ATOR20TA40 PO (13:37)
[2020-01-25] MEDS ORDERED: CARV6.25 PO (13:37)
--- NOTE | 2020-01-25 14:15 | NUR ---
DR HERCULES AT BEDSIDE TO DISCUSS DC PLAN WITH PATIENT, PT AGREES TO TAKE COREG NOW AT 6.25MG, LOWER THAN DOSE BEFORE, PT UP OUT OF BED, AMBULATES WITHOUT ASSIST WITH STEADY GAIT, PT DENIES LIGHTHEADEDNESS OR DIZZINESS.
--- NOTE | 2020-01-25 14:45 | NUR ---
IV DC'D, CATH TIP INTACT, BLEEDING CONTROLLED, PT BRANDON WELL, DC INSTRUCTION AND RX INFO GIVEN AND EXPLAINED TO PT, PT VERBVALIZED FULL UNDERSTANDING, AWAITING FOR A FRIEND FOR A RIDE.
--- NOTE | 2020-01-25 15:15 | NUR ---
PT ESCORTED OUT TO FRONT LOBBY, AMBULATES WITH STEADY GAIT, FRIEND HERE TO GIVE HER A RIDE.
== END 2020-01-25 15:15 | disposition home or self-care (01) | DRG 194 ==
LOC: MED 20:33 → MIC 22:03
PROVIDERS: ADMIT General Practice; ATTEND General Practice
DX: I11.0 Hypertensive heart disease with heart failure (principal); I21.A1 Myocardial infarction type 2; I95.89 Other hypotension; E86.0 Dehydration; I27.29 Other secondary pulmonary hypertension; D75.1 Secondary polycythemia; I50.43 Acute on chronic combined systolic (congestive) and diastolic (congestive) heart failure; I47.1 Supraventricular tachycardia; E78.5 Hyperlipidemia, unspecified; N60.29 Fibroadenosis of unspecified breast; K52.9 Noninfective gastroenteritis and colitis, unspecified; E02 Subclinical iodine-deficiency hypothyroidism; Z98.51 Tubal ligation status; Z82.49 Family history of ischemic heart disease and other diseases of the circulatory system; Z86.73 Personal history of transient ischemic attack (TIA), and cerebral infarction without residual deficits; Z91.11 Patient's noncompliance with dietary regimen; Z56.0 Unemployment, unspecified; R74.0 Nonspecific elevation of levels of transaminase and lactic acid dehydrogenase [LDH]
CPT/HCPCS: 36415; 71045; 76705; 80048; 80053; 80076; 80305; 81001; 81025; 82150; 82272; 83036; 83605; 83690; 83735; 83880; 84100; 84134; 84439; 84443; 84484; 85025; 85610; 85730; 86704; 86706; 86708; 86709; 86803; 87040; 87081; 87340; 87804; 93005; 96365; 96375; 99291; J0153; J1644; J3475; J3490; J7030; Q0092

== ENCOUNTER 2021-03-24 01:30 | Emergency (ER) | payer MEDICAID ==
[~2021-03-24] VITALS: Ht 154.9 cm; Wt 82.6 kg
[~2021-03-24 01:30] MED LIST changes: +CARV6.25 PO; -LISI-420 PO; +LISI20TA29 PO
--- NOTE | 2021-03-24 01:33 | NUR ---
tatianna MARTINEZ Officer [place] # [phone] to [facility]
[2021-03-24 01:34] VITALS: BP 101/57
--- NOTE | 2021-03-24 01:35 | NUR ---
Dr. Benjamin with pt for MSE.
[2021-03-24 01:42] VITALS: BP 101/57
--- NOTE | 2021-03-24 01:51 | NUR ---
pt d/c back to [facility] Officer [place] #[id number]. VSS.
== END 2021-03-24 01:51 ==
LOC: MED 01:30
DX: F10.129 Alcohol abuse with intoxication, unspecified (principal); J45.909 Unspecified asthma, uncomplicated; I10 Essential (primary) hypertension; Z02.89 Encounter for other administrative examinations; Z79.899 Other long term (current) drug therapy
CPT/HCPCS: 99283